=== PATIENT | female | born 1935 | race Hispanic/Latino ===

== ENCOUNTER 2017-06-23 17:02 | Inpatient (IN) | payer MEDICARE, OTHER ==
[2017-06-23 17:02] VITALS: BMI 17.1
[2017-06-23] MEDS ORDERED: Piperacillin/Tazobact 3.375 gm 100 ML IVPB STA (17:27)
[2017-06-23] MEDS ORDERED: Sodium Chloride 0.9% 1,000 ML IV ONE (17:27)
--- NOTE | 2017-06-23 17:34 | C.PDOC ---
History Of Present Illness Alex Wolf is an 82 year old female who was brought to the ER from rehab center for change in mental status. Of note, patient has DNI, DNR in place. Patient baselineis awake but confused, however on arrival here, pt somulent. Patient on arrival is noted to be febrile. Limited history provided. After discussion with family, requests DNI and DNR. Family also states patient has recurrent UTIs. Time Seen by Provider: 06/23/17 17:07 Chief Complaint (Nursing): Altered Mental Status History Per: Patient History/Exam Limitations: Clinical Condition (altered) Onset/Duration Of Symptoms: Days (x1) Current Symptoms Are (Timing): Still Present Additional History Per: Family Associated Symptoms: Fever Past Medical History Reviewed: Historical Data, Nursing Documentation, Vital Signs Vital Signs: Last Vital Signs Temp 96.5 F L 06/26/17 16:00 Pulse 60 06/26/17 16:00 Resp 20 06/26/17 16:00 BP 91/64 L 06/26/17 16:00 Pulse Ox 100 06/26/17 16:00 - Medical History PMH: Anxiety, Arthritis, Atrial Fibrillation, Cardia Arrhythmia (a fib), Dementia, Depression, HTN, Hypothyroidism, Pneumonia Denies: Asthma, Bipolar Disorder, Diabetes, Hepatitis, HIV, Personality Disorder, Post Traumatic Stress Disorder, Chronic Kidney Disease, Schizophrenia , Seizures, Sexually Transmitted Disease - [facility] Procedures INTRODUCTION OF ANTI-INFLAMMATORY INTO MUSCLE, PERC APPROACH (06/04/16) INTRODUCTION OF LOCAL ANESTHETIC INTO MUSCLE, PERC APPROACH (06/04/16) REMOV EXT IMMOBILIZATION (04/06/99) Family History: States: Unknown Family Hx - Social History Hx Alcohol Use: No Hx Substance Use: No - Immunization History Hx Tetanus Toxoid Vaccination: No Hx Influenza Vaccination: No Hx Pneumococcal Vaccination: No Review Of Systems Except As Marked, All Systems Reviewed And Found Negative. Constitutional: Positive for: Fever Neurological: Positive for: Altered Mental Status Physical Exam - Physical Exam Appears: Other (Contracted elderly female) Skin: Normal Color, Warm, Dry Head: Atraumatic, Normacephalic Eye(s): bilateral: Normal Inspection, PERRL, EOMI Nose: Normal Neck: Normal, Normal ROM, Supple Cardiovascular: Rhythm Regular, No Murmur Respiratory: No Rhonchi, No Wheezing, Other (Mildly coarse breath sounds bilaterally) Gastrointestinal/Abdominal: Normal Exam, Soft, No Tenderness Back: Normal Inspection, No Vertebral Tenderness Extremity: Normal ROM, No Deformity Neurological/Psych: Other (responsive to some painful stimuli) ED Course And Treatment - Laboratory Results Result Diagrams: 06/26/17 08:50 06/26/17 08:50 ECG: Interpreted By Me, Viewed By Me ECG Rhythm: Sinus Rhythm (at 68 bpm) O2 Sat by Pulse Oximetry: 99 (RA) Pulse Ox Interpretation: Normal Medical Decision Making Medical Decision Making: pt febrile on arrival. extensive discussion with family on arrival - no aggresive measures- will not ct head, given goals of care for family. Time: 17:26 Initial Impression: 82 y/o female with altered mental status, febrile Initial Plan: * EKG * Chest X-Ray * VBG * Blood culture * Urine culture * CMP * Lipase * Troponin I * CBC * PTT * Prothrombin time * Urinalysis * Influenza A B * Sodium chloride IV 1000 ml at 1000 mls/hr * Tylenol 650 mg NE * Vancomycin IVPB * Zosyn IVPB * Reevaluation 640: discussed with dr blanca, accepts for admission. Disposition - Disposition Disposition: HOSPITALIZED Disposition Time: 18:41 Condition: GUARDED - Clinical Impression Clinical Impression: UTI (urinary tract infection), Altered mental status - Scribe Statement The provider has reviewed the documentation as recorded by the Scribe (Alaina Chambers) All medical record entries made by the Scribe were at my direction and personally dictated by me. I have reviewed the chart and agree that the record accurately reflects my personal performance of the history, physical exam, medical decision making, and the department course for this patient. I have also personally directed, reviewed, and agree with the discharge instructions and disposition. Decision To Admit - Pt Status Changed To: Hospital Disposition Of: Inpatient - Admit Certification Admit to Inpatient:: After my assessment, the patient will require hospitalization for at least two midnights. This is because of the severity of symptoms shown, intensity of services needed, and/or the medical risk in this patient being treated as an outpatient. - InPatient: Physician Admission Certification:: pt needs iv antibiotics - . Bed Request Type: Telemetry Admitting Physician: Anthony Blanca Patient Diagnosis: UTI (urinary tract infection), Altered mental status
[2017-06-23 17:41] LABS: BASO # 0.1 K/uL (0.0-0.2); EOS # 0.7 K/uL (0.0-0.7); EOS % 8.4 % (0.0-4.0); LYMPH # 1.4 K/uL (1.0-4.3); LYMPH % 17.4 % (20.0-40.0); MEAN CELL VOLUME 89.7 fL (81.0-99.0); MEAN CORPUSCULAR HGB CONC 33.4 g/dL (33.0-37.0); MEAN PLATELET VOLUME 7.9 fL (7.2-11.7); MONO # 0.6 K/uL (0.0-0.8); MONO % 8.3 % (0.0-10.0); NEUT # 5.1 K/uL (1.8-7.0); NEUT % 64.9 % (50.0-75.0); RBC 3.01 Mil/uL (3.80-5.20); RED CELL DISTRIBUTION WIDTH 12.5 % (11.5-14.5); WHITE BLOOD COUNT 7.8 K/uL (4.8-10.8)
[2017-06-23 17:45] LABS: VENOUS BLOOD GAS BASE EXCESS 5.3 mmol/L (0.0-2.0); VENOUS BLOOD GAS PCO2 46 mmHg (40-60); VENOUS BLOOD GAS PO2 30 mm/Hg (30-55); VENOUS BLOOD PH 7.43 (7.32-7.43)
[2017-06-23 17:52] LABS: ALT/SGPT 134 U/L (9-52); AST/SGOT 47 U/L (14-36); BLOOD UREA NITROGEN 18 mg/dL (7-17); GFR AFRICAN-AMERICAN > 60; GFR NON-AFRICAN AMERICAN > 60; LIPASE 85 U/L (23-300)
[2017-06-23] MEDS ORDERED: Sodium Chloride 0.9% 1,000 ML ONE (17:52)
[2017-06-23 17:53] LABS: ALB/GLOB RATIO 1.2 (1.0-2.1)
[2017-06-23 18:01] LABS: PROTHROMBIN TIME 11.7 SECONDS (9.7-12.2)
--- NOTE | 2017-06-23 18:04 | RAD ---
HISTORY: chest pain COMPARISON: None available. TECHNIQUE: Chest, one view. FINDINGS: LUNGS: Interstitial prominence may reflect infection or edema. Bilateral hilar prominence, right greater than left. Biapical pleural thickening. Please note that chest x-ray has limited sensitivity for the detection of pulmonary masses. PLEURA: Trace probable bilateral pleural effusions. No definite pneumothorax . CARDIOVASCULAR: Cardiomegaly. OSSEOUS STRUCTURES: Osseous demineralization. Degenerative changes. VISUALIZED UPPER ABDOMEN: Unremarkable. OTHER FINDINGS: None. IMPRESSION: Interstitial prominence may reflect infection or edema. Biapical pleural thickening. Bilateral hilar prominence, right greater than left. Trace probable bilateral pleural effusions. Cardiomegaly.
[2017-06-23 18:26] LABS: SQUAMOUS EPITHIAL 2 /hpf (0-5); URINE AMORPHOUS SEDIMENT RARE /ul (<OCC); URINE BACTERIA OCC (<OCC); URINE BILIRUBIN NEGATIVE (NEGATIVE); URINE BLOOD 1+ (NEGATIVE); URINE CLARITY Hazy (Clear); URINE COLOR Yellow (YELLOW); URINE GLUCOSE (UA) NORMAL (Normal); URINE LEUKOCYTE ESTERASE 1+ Leu/uL (Negative); URINE NITRATE POSITIVE (NEGATIVE); URINE PROTEIN NEGATIVE (NEGATIVE); URINE UROBILINOGEN NORMAL mg/dL (0.2-1.0)
[2017-06-23] MEDS ORDERED: Piperacill/Tazo 3.375gm in Dex 3.375 GM/50 ML BAG IVPB ONE (19:00)
[2017-06-23] MEDS: Sodium Chloride 0.45% 1,000 ML IV SCH (19:06)
[2017-06-23] MEDS ORDERED: Sodium Chloride 0.45% 1,000 ML IV ONE (19:17)
[2017-06-23] MEDS ORDERED: Vancomycin 1 gm/NS 200 ml 1 GM/200 ML BAG IVPB ONE (20:00)
[2017-06-24] MEDS: Piperacill/Tazo 3.375gm in Dex 3.375 GM/50 ML BAG IVPB SCH ×3 (02:25→18:35)
[2017-06-24] MEDS ORDERED: Pantoprazole 40 mg EC Tab PO SCH (06:00)
[2017-06-24 07:09] LABS: HEMOGLOBIN 9.6 g/dL (11.0-16.0); MEAN CELL VOLUME 89.5 fL (81.0-99.0); MEAN CORPUSCULAR HEMOGLOBIN 30.5 pg (27.0-31.0); MEAN CORPUSCULAR HGB CONC 34.1 g/dL (33.0-37.0); MEAN PLATELET VOLUME 7.6 fL (7.2-11.7); RBC 3.16 Mil/uL (3.80-5.20); RED CELL DISTRIBUTION WIDTH 12.2 % (11.5-14.5); WHITE BLOOD COUNT 8.5 K/uL (4.8-10.8)
[2017-06-24 07:26] LABS: ALBUMIN 2.9 g/dL (3.5-5.0); ALT/SGPT 112 U/L (9-52); AST/SGOT 42 U/L (14-36); BLOOD UREA NITROGEN 16 mg/dL (7-17); CALCIUM 8.3 mg/dl (8.6-10.4); GFR AFRICAN-AMERICAN > 60; GFR NON-AFRICAN AMERICAN > 60
[2017-06-24] MEDS ORDERED: Levothyroxine 125 MCG TAB PO SCH (07:30)
[2017-06-24 07:40] LABS: ALB/GLOB RATIO 1.1 (1.0-2.1)
[2017-06-24] MEDS ORDERED: Piperacillin/Tazobact 3.375 gm 100 ML IVPB ONE (09:27)
--- NOTE | 2017-06-24 10:26 | CT ---
PROCEDURE: CT HEAD WITHOUT CONTRAST. HISTORY: Altered mental status COMPARISON: No prior. TECHNIQUE: Axial computed tomography images were obtained through the head/brain without intravenous contrast. Radiation dose: Total exam DLP = 503.71 mGy-cm. This CT exam was performed using one or more of the following dose reduction techniques: Automated exposure control, adjustment of the mA and/or kV according to patient size, and/or use of iterative reconstruction technique. FINDINGS: HEMORRHAGE: No acute parenchymal, subarachnoid or extra-axial hemorrhage. BRAIN: Acute infarct changes involving the left BLEACH CHLORINATOR vascular territory that include the left cerebellum, left occipito parietal watershed zone at left posteromedial basal ganglia and brainstem. . Additionally, mild diffuse/ confluent chronic white matter ischemic changes are present. There are a few scattered chronic bilateral basal nuclei lacunar type infarcts as well. Moderate generalized volume loss. VENTRICLES: No obstructive hydrocephalus. CALVARIUM: There are no acute calvarial fractures are identified on this study. PARANASAL SINUSES: Minor mucoperiosteal inflammatory changes seen within the ethmoid air complex extending superiorly into the frontal sinus. MASTOID AIR CELLS: Unremarkable as visualized. No inflammatory changes. OTHER FINDINGS: None. IMPRESSION: There are acute infarct changes involving the in the left posterior cerebral artery vascular distribution including the cerebellum, brainstem, left occipito parietal watershed zone and left posteromedial basal ganglia. . Few scattered chronic bilateral basal nuclei lacunar type infarcts. No evidence of acute intracranial hemorrhage. Moderate generalized volume loss. Note these findings were discussed with Dr. Blanca 10:20 a.m. with written down and read back verification.
[2017-06-24 10:45] LABS: HEMOGLOBIN 9.3 g/dL (11.0-16.0); MEAN CELL VOLUME 89.9 fL (81.0-99.0); MEAN CORPUSCULAR HEMOGLOBIN 30.2 pg (27.0-31.0); MEAN CORPUSCULAR HGB CONC 33.6 g/dL (33.0-37.0); MEAN PLATELET VOLUME 7.8 fL (7.2-11.7); RBC 3.07 Mil/uL (3.80-5.20); RED CELL DISTRIBUTION WIDTH 12.3 % (11.5-14.5); WHITE BLOOD COUNT 9.1 K/uL (4.8-10.8)
[2017-06-24 11:07] LABS: ALBUMIN 2.9 g/dL (3.5-5.0); ALT/SGPT 108 U/L (9-52); AST/SGOT 48 U/L (14-36); BLOOD UREA NITROGEN 16 mg/dL (7-17); CALCIUM 8.3 mg/dl (8.6-10.4); GFR AFRICAN-AMERICAN > 60; GFR NON-AFRICAN AMERICAN > 60
--- NOTE | 2017-06-24 12:02 | HP ---
HISTORY OF PRESENT ILLNESS: I saw her in the ER at [facility]. She is from the correction. She was a Dr. Faulkner's patient. Now, I am covering Dr. Faulkner. She is in the ER, not alert, not aware, breathing. Apparently, she is a DNR/DNI from the correction, but I think family might change their mind on that. She has not awoken for me. She has altered mental status from the correction, which she came from. She was alert and talking at one time. There was some fevers. She comes in with a 101.4 temp, 86 pulse, 20 respiratory rate, 102/46 blood pressure, 99% O2 sat. I cannot do a review of systems. She is not alert. She has a past medical history of anxiety, arthritis, AFib, cardiac arrhythmia, dementia, depression, hypertension, hypothyroid, pneumonia history. She had removal of embolization in 1998. Apparently, she does not smoke or drink or do drugs. We cannot do a review of systems. She has altered mental status, not awake or alert. PHYSICAL EXAMINATION: VITAL SIGNS: She has a temperature of 101.4. GENERAL: She is sleeping apparently in bed, not awaking, not arousable. SKIN: Warm and dry. No apparent rashes. HEENT: Head is atraumatic, normocephalic. HEART: Regular rate. LUNGS: Decreased breath sounds, fairly clear. ABDOMEN: Soft. No apparent tenderness. No guarding. No rebound. Positive bowel sounds. EXTREMITIES: No edema. She does not move anything. She is out of it. LABORATORY DATA: She comes in with labs and lots of tests. She has a 137 sodium, a 3.5 potassium, I replaced the potassium, BUN is 16, creatinine 0.7, GFR is greater than 60, sugar is 90, calcium is 8.3, total bili is 0.7. AST is 42, ALT is 112, alk phos is 261, troponin is less than 0.012, total protein 5.7. The thyroid test was less than 0.02. She is on Synthroid. I will stop the Synthroid. She has a white count of 8.5, hemoglobin 9.6, hematocrit 28.2, platelets of 241. They did a chest x-ray, interstitial problems, reflect infection or edema. IMPRESSION: She has been consulted with Neurology and Infectious Disease. I have her on IV fluids, Zosyn antibiotic. We will hold the Protonix. I will change that to IV. I am stopping the Synthroid. She did not get any because she cannot swallow. Now that we know that the TSH is so low, I will stop the Synthroid. She got one dose of vancomycin in the ER. We are checking her labs. We will see what Neurology and Infectious Disease has to offer. We will continue aggressive treatment and care on Alex Wolf who has got change in mentation. We will also order a CAT scan of the brain. Anthony Blanca DO
--- NOTE | 2017-06-24 14:14 | MRI ---
PROCEDURE: MRI BRAIN WITHOUT CONTRAST HISTORY: CVA COMPARISON: Noncontrast head CT performed earlier the same day. TECHNIQUE: Multiplanar, multisequence MR images of the brain were obtained without intravenous contrast enhancement. FINDINGS: HEMORRHAGE: None DWI: There are acute infarctions in the left cerebellum, left occipital lobe, right posterior inferior occipital lobe, posterior gualberto, midbrain, bilateral medial temporal lobes, larger on the left, left thalamus, right medial thalamus and periaqueductal kirby matter. BRAIN PARENCHYMA: There is subtle increased T2/FLAIR hyperintensity corresponding to the areas of restricted diffusion. There are moderate chronic microangiopathic changes. There is no mass, mass effect or abnormal extra-axial fluid collection. The midline sagittal structures are normal. VENTRICLES: There is mild age-related global parenchymal volume loss and proportionate enlargement of the ventricles and cortical sulci. CRANIUM: There is normal bone marrow signal pattern. ORBITS: Grossly unremarkable. PARANASAL SINUSES/MASTOIDS: Mild mucosal thickening in the paranasal sinuses. Trace right mastoid effusion. VASCULAR SYSTEM: Skull base flow voids intact. OTHER FINDINGS: None. IMPRESSION: 1. 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 2. Moderate chronic microangiopathic changes and mild age-related global parenchymal volume loss. Critical findings were discussed with nurse Shan Steiner on 06/24/2017 at 2:12 p.m.
--- NOTE | 2017-06-24 15:37 | VASCLAB ---
PROCEDURE: HISTORY: stroke COMPARISON: None available. TECHNIQUE: Grayscale and duplex Doppler evaluation of the cervical carotid and vertebral arteries were performed. The common carotid, carotid bifurcations and cervical Internal Carotid Artery (ICA) and proximal External Carotid Artery (ECA) were evaluated. The vertebral arteries were evaluated for gross patency and flow direction. Report prepared by Gregory Lewis, BS, RVT FINDINGS: RIGHT CAROTID ARTERIES: 1. Common Carotid Artery: No significant focal plaque formation of the right common carotid artery. Maximum Peak Systolic velocity: 82 cm/sec: End-diastolic velocity 22 cm/sec. 2. Carotid Bifurcation: plaque formation. Maximum Peak Systolic velocity: 78 cm/sec: End-diastolic velocity 26 cm/sec. 3. Internal Carotid Artery: Plaque description: 3.1. Proximal Segment: Peak systolic velocity 76 cm/sec: End-diastolic velocity 16 cm/sec - % stenosis 0-15% 3.2. Middle Segment: Peak systolic velocity 95 cm/sec: End-diastolic velocity 27 cm/sec - % stenosis 0-15% 3.3. Distal Segment: Peak systolic velocity 89 cm/sec: End-diastolic velocity 32 cm/sec - % stenosis 0-15% 4. External Carotid Artery: No significant focal plaque formation. Peak systolic velocity 102 cm/sec 5. ICA/CCA Ratio: 1.2 LEFT CAROTID ARTERIES: 1. Common Carotid Artery: No significant focal plaque formation of the left common carotid artery. Maximum Peak Systolic velocity: 68 cm/sec: End-diastolic velocity 19 cm/sec. 2. Carotid Bifurcation: plaque formation. Maximum Peak Systolic velocity: 58 cm/sec: End-diastolic velocity 17 cm/sec. 3. Internal Carotid Artery: Plaque description: 3.1. Proximal Segment: Peak systolic velocity 84 cm/sec: End-diastolic velocity 26 cm/sec - % stenosis 0-15% 3.2. Middle Segment: Peak systolic velocity 112 cm/sec: End-diastolic velocity 31 cm/sec - % stenosis 0-15% 3.3. Distal Segment: Peak systolic velocity 131 cm/sec: End-diastolic velocity 32 cm/sec - % stenosis 0-15% 4. External Carotid Artery: No significant focal plaque formation. Peak systolic velocity 86 cm/sec 5. ICA/CCA Ratio: 1.9 VERTEBRAL ARTERIES: 1. Right Vertebral Artery: The right vertebral artery flow direction is antegrade. 2. Left Vertebral Artery: Unable to visualize the left vertebral artery flow. OTHER FINDINGS: 1. Right Brachial Blood pressure: mmHg. 2. Left Brachial Blood pressure: mmHg. IMPRESSION: RIGHT: Duplex scan does not suggest hemodynamically significant stenosis of the right extracranial carotid arteries. LEFT: Duplex scan does not suggest hemodynamically significant stenosis of the left extracranial carotid arteries. Nonvisualization of flow within the left vertebral artery. Findings conveyed to Dr. Blanca by Dr. Bolton at 3:34 p.m. on 06/24/2017.
[2017-06-24 16:45] LABS: HDL CHOLESTEROL 33 mg/dL (30-70)
[2017-06-24 16:56] LABS: LDL CHOLESTEROL 120 mg/dL (0-129)
[2017-06-24] MEDS ORDERED: Thiamine 100 mg/ml Inj ONE (17:06)
[2017-06-24] MEDS: Thiamine 100 mg/ml Inj IV SCH ×2 (17:12→23:21)
--- NOTE | 2017-06-24 17:17 | CP.PCM.CON ---
History of Present Illness - History of Present Illness History of Present Illness: 82 year old female who was brought to the ER from rehab center for change in mental status. . Patient baselinei s awake but confused, however on arrival here, pt somulent. Patient on arrival is noted to be febrile. L. Family also states patient has recurrent UTIs. ID consulted for anytibiotic management - Medical History PMH: Anxiety, Arthritis, Atrial Fibrillation, Cardia Arrhythmia (a fib), Dementia, Depression, HTN, Hypothyroidism, Pneumonia Denies: Asthma, Bipolar Disorder, Diabetes, Hepatitis, HIV, Personality Disorder, Post Traumatic Stress Disorder, Chronic Kidney Disease, Schizophrenia , Seizures, Sexually Transmitted Disease Review of Systems - Review of Systems Systems not reviewed;Unavailable: Altered Mental Status All systems: reviewed and no additional remarkable complaints except - Constitutional Constitutional: As Per HPI - EENT Eyes: absent: As Per HPI, Blind Spots, Blurred Vision, Change in Vision, Decreased Night Vision, Diplopia, Discharge, Dry Eye, Exophthalmos, Floaters, Irritation, Itchy Eyes, Loss of Peripheral Vision, Pain, Photophobia, Requires Corrective Lenses, Sees Flashes, Spots in Vision, Tunnel Vision, Other Visual Disturbances, Loss of Vision, Other Ears: absent: As Per HPI, Decreased Hearing, Ear Discharge, Ear Pain, Tinnitus, Abnormal Hearing, Disequilibrium, Dizziness, Other Nose/Mouth/Throat: absent: As Per HPI, Epistaxis, Nasal Congestion, Nasal Discharge, Nasal Obstruction, Nasal Trauma, Nose Pain, Post Nasal Drip, Sinus Pain, Sinus Pressure, Bleeding Gums, Change in Voice, Dental Pain, Dry Mouth, Dysphagia, Halitosis, Hoarsness, Lip Swelling, Mouth Lesions, Mouth Pain, Odynophagia, Sore Throat, Throat Swelling, Tongue Swelling, Facial Pain, Neck Pain, Neck Mass, Other - Breasts Breasts: absent: As Per HPI, Change in Shape, Mass, Pain, Nipple Discharge, Nipple Inversion, Skin Changes, Swelling, Other - Cardiovascular Cardiovascular: absent: As Per HPI, Acrocyanosis, Chest Pain, Chest Pain at Rest , Chest Pain with Activity, Claudication, Diaphoresis, Dyspnea, Dyspnea on Exertion, Edema, Irregular Heart Rhythm, Pain Radiating to Arm/Neck/Jaw, Leg Edema, Leg Ulcers, Lightheadedness, Orthopnea, Palpitations, Paroxysmal Nocturnal Dyspnea, Pedal Edema, Radiating Pain, Rapid Heart Rate, Slow Heart Rate, Syncope, Other - Respiratory Respiratory: absent: As Per HPI, Cough, Dyspnea, Hemoptysis, Dyspnea on Exertion , Wheezing, Snoring, Stridor, Pain on Inspiration, Chest Congestion, Excessive Mucous Production, Change in Mucous Color, Pain with Coughing, Other - Gastrointestinal Gastrointestinal: absent: As Per HPI, Abdominal Pain, Belching, Bloating, Change in Bowel Habits, Change in Stool Character, Coffee Ground Emesis, Constipation, Cramping, Diarrhea, Dyspepsia, Dysphagia, Early Satiety, Excessive Flatus, Fecal Incontinence, Heartburn, Hematemesis, Hematochezia, Loose Stools, Melena, Nausea, Odynophagia, Temesmus, Vomiting, Other - Genitourinary Genitourinary: absent: As Per HPI, Change in Urinary Stream, Difficulty Urinating, Dysuria, Flank Pain, Hematuria, Pyuria, Nocturia, Urinary Incontinence, Urinary Frequency, Urinary Hesitance, Urinary Urgency, Voiding Freq/Small Amts, Freq UTI, Hx Renal/Bladder Calculi, Hx /Renal Surgery, Bladder Distension, Other - Reproductive: Female Reproductive:Female: absent: As Per HPI, Amenorrhea, Amenorrhea/ Control, Currently Menstual, Cycle <21 Days, Cycle >35 Days, Cycle Variable, Menses 1-7 Days, Menses >/= 8 Days, Menses Variable, Cycle > 4 Weeks Between, No Menses for 6 Months, Heavy Menses, Light Menses, Normal Menses, Spotting Between Cycles , S/P Hysterectomy, Menopausal, Post Menopausal, Premenarche, Abnormal Vaginal Bleeding, Dysmenorrhea, Dyspareunia, Genital Lesions, Genital Pruritis, Pelvic Pain, Prolapse Symptoms, Sexual Dysfunction, Vaginal Discharge, Vaginal Dryness , Vaginal Odor, Vaginal Pruritis, Other - Menstruation Menstruation: absent: As Per HPI, Amenorrhea, Amenorrhea/ Control, Currently Menstual, Cycle <21 Days, Cycle >35 Days, Cycle Variable, Menses 1-7 Days, Menses >/= 8 Days, Menses Variable, Cycle > 4 Weeks Between, No Menses for 6 Months, Heavy Menses, Light Menses, Normal Menses, Spotting Between Cycles , S/P Hysterectomy, Menopausal, Post Menopausal, Premenarche, Abnormal Vaginal Bleeding, Dysmenorrhea, Other - Musculoskeletal Musculoskeletal: absent: As Per HPI, Abnormal Gait, Arthralgias, Atrophy, Back Pain, Deformity, Joint Swelling, Limited Range of Motion, Loss of Height, Muscle Cramps, Muscle Weakness, Myalgias, Neck Pain, Numbness, Radiating Pain into Limb, Stiffness, Tingling, Other - Integumentary Integumentary: absent: As Per HPI, Acne, Alopecia, Bleeding Lesions, Change in Hair, Change in Nails, Change in Pigmentation, Changing Lesions, Dry Skin, Erythema, Furuncle, Hirsutism, Lesions, New Lesions, Non-Healing Lesions, Photosensitivity, Pruritus, Rash, Skin Pain, Skin Ulcer, Sores, Striae, Swelling , Unusual Bruising, Wounds, Jaundice, Other - Neurological Neurological: As Per HPI - Psychiatric Psychiatric: absent: As Per HPI, Abnormal Sleep Pattern, Anhedonia, Anxiety, Auditory Hallucinations, Behavioral Changes, Change in Appetite, Change in Libido, Confusion, Depression, Difficulty Concentrating, Hallucinations, Homicidal Ideation, Hopelessness, Irritability, Memory Loss, Mood Swings, Panic Attacks, Paranoia, Suicidal Ideation, Visual Hallucinations, Tactile Hallucinations, Other - Endocrine Endocrine: absent: As Per HPI, Change in Body Appearance, Change in Libido, Cold Intolorance, Deepening of Voice, Excessive Sweating, Fatigue, Flushing, Heat Intolorance, Increase in Ring/Shoe/Hat Size, Palpitations, Polydipsia, Polyphagia, Polyuria, Other - Hematologic/Lymphatic Hematologic: absent: As Per HPI, Easy Bleeding, Easy Bruising, Lymphadenopathy, Other Past Patient History - Infectious Disease Hx of Infectious Diseases: None - Past Social History Smoking Status: Never Smoked - CARDIAC Hx Atrial Fibrillation: Yes Hx Cardia Arrhythmia: Yes (a fib) Hx Hypertension: Yes - PULMONARY Hx Asthma: No Hx Pneumonia: Yes - NEUROLOGICAL Hx Dementia: Yes Hx Seizures: No - HEENT Hx HEENT Problems: Yes (eyeglasses) - RENAL Hx Chronic Kidney Disease: No - ENDOCRINE/METABOLIC Hx Hypothyroidism: Yes - HEMATOLOGICAL/ONCOLOGICAL Hx Human Immunodeficiency Virus (HIV): No - INTEGUMENTARY Hx Dermatological Problems: No - MUSCULOSKELETAL/RHEUMATOLOGICAL Hx Arthritis: Yes - GASTROINTESTINAL Hx Gastrointestinal Disorders: No - GENITOURINARY/GYNECOLOGICAL Hx Sexually Transmitted Disorders: No - PSYCHIATRIC Hx Anxiety: Yes Hx Bipolar Disorder: No Hx Depression: Yes Hx Post Traumatic Stress Disorder: No Hx Schizophrenia: No Hx Substance Use: No - SURGICAL HISTORY Hx Orthopedic Surgery: Yes (left wrist hardware in and out) Other/Comment: ORTHO SURGERY FROM PREVISOU TRIAGE - ANESTHESIA Hx Anesthesia: Yes Hx Anesthesia Reactions: No Hx Malignant Hyperthermia: No Meds Allergies/Adverse Reactions: Allergies Allergy/AdvReac Type Severity Reaction Status Date / Time No Known Allergies Allergy Verified 06/23/17 17:13 - Medications Medications: Current Medications Docusate Sodium (Colace) 100 mg PO BID [facility] Last Admin: 06/24/17 09:33 Dose: Not Given Heparin Sodium (Porcine) (Heparin) 5,000 units SC Q12 [facility] Last Admin: 06/24/17 10:42 Dose: 5,000 units Sodium Chloride (Sodium Chloride 0.45%) 1,000 mls @ 30 mls/hr IV .Q24H [facility] Last Admin: 06/23/17 19:06 Dose: 30 mls/hr Piperacillin Sod/Tazobactam Sod (Zosyn 3.375 Gm Iv Premix) 3.375 gm in 50 mls @ 100 mls/hr IVPB Q8H [facility] Last Admin: 06/24/17 10:30 Dose: 100 mls/hr Pantoprazole Sodium (Protonix Inj) 40 mg IVP DAILY [facility] Last Admin: 06/24/17 10:30 Dose: 40 mg Thiamine HCl (Vitamin B1 Inj) 100 mg IV Q8 [facility] Last Admin: 06/24/17 17:12 Dose: 100 mg Physical Exam - Constitutional Appears: Confused, Cachectic, Chronically Ill - Head Exam Head Exam: NORMOCEPHALIC - Eye Exam Eye Exam: PERRL. absent: Scleral icterus - ENT Exam ENT Exam: Mucous Membranes Dry - Neck Exam Neck exam: Negative for: Lymphadenopathy - Respiratory Exam Respiratory Exam: Decreased Breath Sounds - Cardiovascular Exam Cardiovascular Exam: REGULAR RHYTHM, +S1, +S2 - GI/Abdominal Exam GI & Abdominal Exam: Diminished Bowel Sounds, Soft. absent: Tenderness - Rectal Exam Rectal Exam: Deferred - Exam Exam: NORMAL INSPECTION - Extremities Exam Extremities exam: Positive for: pedal pulses present. Negative for: calf tenderness, pedal edema, tenderness - Back Exam Back exam: absent: CVA tenderness (L), CVA tenderness (R) - Neurological Exam Neurological exam: Altered - Psychiatric Exam Psychiatric exam: Depressed - Skin Skin Exam: Dry Results - Vital Signs Recent Vital Signs: Last Vital Signs Temp 99.7 F H 06/24/17 01:08 Pulse 62 06/24/17 09:51 Resp 22 06/24/17 09:51 BP 98/49 L 06/24/17 09:51 Pulse Ox 100 06/24/17 09:51 - Labs Result Diagrams: 06/24/17 10:31 06/24/17 10:31 Labs: Laboratory Results - last 24 hr 06/23/17 06/23/17 06/23/17 17:23 17:38 17:38 WBC 7.8 RBC 3.01 L Hgb 9.0 L Hct 27.0 L MCV 89.7 MCH 30.0 MCHC 33.4 RDW 12.5 Plt Count 236 MPV 7.9 Neut % (Auto) 64.9 Lymph % (Auto) 17.4 L [place] % (Auto) 8.3 Eos % (Auto) 8.4 H Baso % (Auto) 1.0 Neut # 5.1 Lymph # 1.4 [place]ford # 0.6 Eos # 0.7 Baso # 0.1 PT 11.7 INR 1.0 APTT 28 pO2 VBG pH VBG pCO2 VBG HCO3 VBG Total CO2 VBG O2 Sat (Calc) VBG Base Excess VBG Potassium Glucose Lactate Sodium Potassium Chloride Carbon Dioxide Anion Gap BUN Creatinine Est GFR ( Amer) Est GFR (Non-Af Amer) POC Glucose (mg/dL) 85 Random Glucose Calcium Total Bilirubin AST ALT Alkaline Phosphatase Troponin I Total Protein Albumin Globulin Albumin/Globulin Ratio Triglycerides Cholesterol LDL Cholesterol Direct HDL Cholesterol Lipase TSH 3rd Generation Venous Blood Potassium Urine Color Urine Clarity Urine pH Ur Specific Lawrence Urine Protein Urine Glucose (UA) Urine Ketones Urine Blood Urine Nitrate Urine Bilirubin Urine Urobilinogen Ur Leukocyte Esterase Urine WBC (Auto) Urine RBC (Auto) Ur Squamous Epith Cells Amorphous Sediment Urine Bacteria Influenza Typ A,B (EIA) 06/23/17 06/23/17 06/23/17 17:38 17:39 17:41 WBC RBC Hgb Hct MCV MCH MCHC RDW Plt Count MPV Neut % (Auto) Lymph % (Auto) [place] % (Auto) Eos % (Auto) Baso % (Auto) Neut # Lymph # [place] # Eos # Baso # PT INR APTT pO2 30 VBG pH 7.43 VBG pCO2 46 VBG HCO3 28.0 VBG Total CO2 31.9 H VBG O2 Sat (Calc) 62.6 VBG Base Excess 5.3 H VBG Potassium 3.4 L Glucose 89 Lactate 0.9 Sodium 138 143.0 Potassium 3.6 Chloride 104 113.0 H Carbon Dioxide 29 Anion Gap 8 L BUN 18 H Creatinine 0.7 Est GFR ( Amer) > 60 Est GFR (Non-Af Amer) > 60 POC Glucose (mg/dL) Random Glucose 90 Calcium 8.0 L Total Bilirubin 0.4 AST 47 H ALT 134 H Alkaline Phosphatase 283 H D Troponin I < 0.0120 Total Protein 5.4 L Albumin 3.0 L Globulin 2.4 Albumin/Globulin Ratio 1.2 Triglycerides Cholesterol LDL Cholesterol Direct HDL Cholesterol Lipase 85 TSH 3rd Generation Venous Blood Potassium 3.4 L Urine Color Urine Clarity Urine pH Ur Specific Lawrence Urine Protein Urine Glucose (UA) Urine Ketones Urine Blood Urine Nitrate Urine Bilirubin Urine Urobilinogen Ur Leukocyte Esterase Urine WBC (Auto) Urine RBC (Auto) Ur Squamous Epith Cells Amorphous Sediment Urine Bacteria Influenza Typ A,B (EIA) Negative for flu a/b 06/23/17 06/24/17 06/24/17 18:05 07:01 07:01 WBC 8.5 RBC 3.16 L Hgb 9.6 L Hct 28.2 L MCV 89.5 MCH 30.5 MCHC 34.1 RDW 12.2 Plt Count 241 MPV 7.6 Neut % (Auto) Lymph % (Auto) [place] % (Auto) Eos % (Auto) Baso % (Auto) Neut # Lymph # [place] # Eos # Baso # PT INR APTT pO2 VBG pH VBG pCO2 VBG HCO3 VBG Total CO2 VBG O2 Sat (Calc) VBG Base Excess VBG Potassium Glucose Lactate Sodium 137 Potassium 3.5 L Chloride 104 Carbon Dioxide 28 Anion Gap 9 L BUN 16 Creatinine 0.7 Est GFR ( Amer) > 60 Est GFR (Non-Af Amer) > 60 POC Glucose (mg/dL) Random Glucose 90 Calcium 8.3 L Total Bilirubin 0.7 AST 42 H ALT 112 H Alkaline Phosphatase 261 H Troponin I Total Protein 5.7 L Albumin 2.9 L Globulin 2.8 Albumin/Globulin Ratio 1.1 Triglycerides Cholesterol LDL Cholesterol Direct HDL Cholesterol Lipase TSH 3rd Generation < 0.02 L Venous Blood Potassium Urine Color Yellow Urine Clarity Hazy Urine pH 9.0 Ur Specific Lawrence 1.014 Urine Protein Negative Urine Glucose (UA) Normal Urine Ketones Negative Urine Blood 1+ H Urine Nitrate Positive H Urine Bilirubin Negative Urine Urobilinogen Normal Ur Leukocyte Esterase 1+ H Urine WBC (Auto) 8 H Urine RBC (Auto) 9 H Ur Squamous Epith Cells 2 Amorphous Sediment Rare H Urine Bacteria Occ H Influenza Typ A,B (EIA) 06/24/17 06/24/17 06/24/17 10:31 10:31 16:36 WBC 9.1 RBC 3.07 L Hgb 9.3 L Hct 27.6 L MCV 89.9 MCH 30.2 MCHC 33.6 RDW 12.3 Plt Count 227 MPV 7.8 Neut % (Auto) Lymph % (Auto) [place] % (Auto) Eos % (Auto) Baso % (Auto) Neut # Lymph # [place] # Eos # Baso # PT INR APTT pO2 VBG pH VBG pCO2 VBG HCO3 VBG Total CO2 VBG O2 Sat (Calc) VBG Base Excess VBG Potassium Glucose Lactate Sodium 135 Potassium 3.1 L Chloride 104 Carbon Dioxide 29 Anion Gap 6 L BUN 16 Creatinine 0.6 L Est GFR ( Amer) > 60 Est GFR (Non-Af Amer) > 60 POC Glucose (mg/dL) Random Glucose 87 Calcium 8.3 L Total Bilirubin 0.6 AST 48 H ALT 108 H Alkaline Phosphatase 254 H Troponin I Total Protein 5.6 L Albumin 2.9 L Globulin 2.8 Albumin/Globulin Ratio 1.0 Triglycerides 69 Cholesterol 176 LDL Cholesterol Direct 120 HDL Cholesterol 33 Lipase TSH 3rd Generation Venous Blood Potassium Urine Color Urine Clarity Urine pH Ur Specific Lawrence Urine Protein Urine Glucose (UA) Urine Ketones Urine Blood Urine Nitrate Urine Bilirubin Urine Urobilinogen Ur Leukocyte Esterase Urine WBC (Auto) Urine RBC (Auto) Ur Squamous Epith Cells Amorphous Sediment Urine Bacteria Influenza Typ A,B (EIA) Assessment & Plan (1) Altered mental status Status: Acute (2) Urinary tract infection Status: Acute (3) Atrial fibrillation Status: Acute - Assessment and Plan (Free Text) Assessment: check cultures neuro eval CT head IV antibiotics DNR/DNI
--- NOTE | 2017-06-24 21:13 | CON ---
DATE: 06/24/2017 NEUROLOGY CONSULTATION CHIEF COMPLAINT: Altered mental status. HISTORY OF PRESENT ILLNESS: She was an 82-year-old woman with history of atrial fibrillation, cardiac arrhythmia, dementia, depression, hypertension, hypothyroidism, pneumonia, who presents from the [facility] as altered mental status. She was not aware or alert; therefore, came for further evaluation. She had low systolic and diastolic blood pressures currently, which showed blood pressures currently at 98/49. 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 There is mostly right-sided weakness, worse on the left, and altered. Carotid Doppler reviewed, no significant hemodynamic stenosis in the carotid arteries. Patient is now on aspirin and Plavix for stroke prevention and is on Zosyn for underlying urinary tract infection. PAST MEDICAL HISTORY: History of AFib, arthritis, anxiety, depression, hypothyroidism, hypertension. REVIEW OF SYSTEMS: A 14-point review of system is negative except per HPI. FAMILY HISTORY: Noncontributory. SOCIAL HISTORY: No illicit drug use, smoking, or EtOH abuse. ALLERGIES: NO KNOWN DRUG ALLERGIES. MEDICATIONS: Reviewed via nurse reconciliation sheet. PHYSICAL EXAMINATION: VITAL SIGNS: Temperature afebrile, pulse rate 62, blood pressure 98/49, respiratory rate 22, oxygen saturation 100% on room air. GENERAL: Patient is drowsy, in no acute distress. HEENT: Atraumatic and normocephalic. PERRLA. Extraocular muscles are intact. NECK: Supple. No JVD. No adenopathy noted. LUNGS: Clear to auscultation. No adventitious sounds. HEART: S1 and S2, normal rate and rhythm. No murmurs, rubs, or gallops. ABDOMEN: Soft, nontender, and nondistended. Bowel sounds are present. EXTREMITIES: No clubbing. No cyanosis. Peripheral pulses are 2+ felt bilaterally. NEUROLOGIC: Patient is drowsy, not communicating, in deep sleep. Speech is difficult to assess at this time. Cranial nerves, most with a right facial droop. Motor exam: Generalized weakness, but mostly on the right side is more than the left. Withdrawal is minimal to noxious stimulus. DTRs are 1+ throughout. LABORATORY DATA: Sodium 135, potassium 3.1, chloride 104, carbon dioxide 29, BUN of 16, creatinine 0.6, random glucose of 87. ASSESSMENT: This is an 82-year-old woman with past medical history of atrial fibrillation, not on any anticoagulation, with anxiety, arthritis, depression, hypertension, history of pneumonia, who presented from [facility] for altered mental status, not arousable, was called to evaluate. 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 At this time, her infarctions are likely secondary to watershed distribution from drop in her systolic and diastolic blood pressures. PLAN: 1. Aspirin 81, Plavix 75 mg, Lipitor 80 mg p.o. daily for stroke prevention. 2. Get a Cardiology consult, given that bilateral thalamic strokes possibly need to evaluate for any abnormal rhythm. She has a history of atrial fibrillation, but her risk in terms of HAS-BLED score is high in terms of putting her on any anticoagulation. Therefore, recommended to hold, but we will get cardiology input. 3. Continue her antibiotics per ID for underlying urinary tract infection. 4. Physical Therapy, Occupational Therapy evaluation as well as Speech. 5. Thiamine 100 mg IV q.8 to activate the reticular activating system. 6. She will likely need acute rehab. Once again avoid systolic drops in blood pressure. Keep the systolic blood pressure above 120 to 140s and diastolics 70 to 80s. Once again, thank you for this consult. Tom Hoyos MD
--- NOTE | 2017-06-24 22:37 | CON ---
DATE: HISTORY OF PRESENT ILLNESS: This is an 82-year-old white female who came from a shelter and patient had altered mental status. Patient is not following any commands and limited history. Her chief complaint was altered mental status. PAST MEDICAL HISTORY: Atrial fibrillation, dementia, depression, hypertension, hypothyroidism, pneumonia and arthritis. REVIEW OF SYSTEMS: A 10-point review of systems, patient is unresponsive and not following any commands. PHYSICAL EXAMINATION VITAL SIGNS: Blood pressure 102/46. NEUROLOGIC: Patient is not responding to verbal commands and bilateral iridectomy. No facial asymmetry. Limited spontaneous movement of the extremities noted. Deep tendon reflexes are 1+. Both plantars are downgoing. Sensory appears intact. Cerebellar, gait deferred. LABORATORY DATA: WBC 7.8, hemoglobin 9, hematocrit 27, platelet 236. Sodium 138, potassium 3.6, chloride 104, CO2 of 29, glucose 90, BUN 18, creatinine 0.7. IMPRESSION AND PLAN: 1. Encephalopathy superimposed on dementia. 2. 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 Continue present management and patient also has urinary tract infection and we will follow up. Jeremiah Hoyos MD
--- NOTE | 2017-06-24 23:30 | CARD ---
APPROVED REPORT EKG Measurement Heart [id number] <Conclusion> Sinus rhythm with APBs Left axis deviation Pulmonary disease pattern Inferior infarct, age undetermined Abnormal ECG
[2017-06-25] MEDS: Piperacill/Tazo 3.375gm in Dex 3.375 GM/50 ML BAG IVPB SCH ×3 (03:30→17:36)
[2017-06-25] MEDS: Sodium Chloride 0.45% 1,000 ML IV SCH (03:30)
[2017-06-25] MEDS: Thiamine 100 mg/ml Inj IV SCH ×3 (05:49→22:21)
[2017-06-25 11:39] LABS: HEMOGLOBIN 9.9 g/dL (11.0-16.0); MEAN CELL VOLUME 88.7 fL (81.0-99.0); MEAN CORPUSCULAR HEMOGLOBIN 30.6 pg (27.0-31.0); MEAN CORPUSCULAR HGB CONC 34.5 g/dL (33.0-37.0); RBC 3.25 Mil/uL (3.80-5.20); RED CELL DISTRIBUTION WIDTH 12.4 % (11.5-14.5); WHITE BLOOD COUNT 10.2 K/uL (4.8-10.8)
[2017-06-25 12:07] LABS: ALBUMIN 2.8 g/dL (3.5-5.0); ALT/SGPT 77 U/L (9-52); AST/SGOT 44 U/L (14-36); BLOOD UREA NITROGEN 21 mg/dL (7-17); CALCIUM 8.3 mg/dl (8.6-10.4); GFR AFRICAN-AMERICAN > 60; GFR NON-AFRICAN AMERICAN > 60
[2017-06-25] MEDS ORDERED: Albuterol-Ipratrop 3 mg / 0.5 (3 ml) UD INH PRN (13:16)
--- NOTE | 2017-06-25 13:18 | CP.PCM.CON ---
<Zander,Leilani - Last Filed: 06/25/17 13:11> History of Present Illness - History of Present Illness History of Present Illness: GI Fellow PGY4 Consult Note This is a 82 yo female with PMHX of hypothyroidism and tremor presents with AMS , acute CVA, and UTI. Pt was lethargic during hospitalizations and CT brain found acute bl [place] infarcts. GI was consulted for possible PEG. Pt unable to participate in exam, hx gathered from EMR, pt apparently able to ambulate at home prior to admission. Per primary team, family considering hospice vs PEG. Pt unable to participate in swallow evaluation. ROS: Unable to obtained due to AMS PMHx: Hypothyroidism, Essential Tremor Surgery: L radial repair FHx: HTN, RI (maternal and paternal) SH: no reported EtOH, tobacco, or illicit drug use; Lives at home with son Past Patient History - Infectious Disease Hx of Infectious Diseases: None - Past Social History Smoking Status: Never Smoked - CARDIAC Hx Atrial Fibrillation: Yes Hx Cardia Arrhythmia: Yes (a fib) Hx Hypertension: Yes - PULMONARY Hx Asthma: No Hx Pneumonia: Yes - NEUROLOGICAL Hx Dementia: Yes Hx Seizures: No - HEENT Hx HEENT Problems: Yes (eyeglasses) - RENAL Hx Chronic Kidney Disease: No - ENDOCRINE/METABOLIC Hx Hypothyroidism: Yes - HEMATOLOGICAL/ONCOLOGICAL Hx Human Immunodeficiency Virus (HIV): No - INTEGUMENTARY Hx Dermatological Problems: No - MUSCULOSKELETAL/RHEUMATOLOGICAL Hx Arthritis: Yes Hx Falls: No - GASTROINTESTINAL Hx Gastrointestinal Disorders: No - GENITOURINARY/GYNECOLOGICAL Hx Sexually Transmitted Disorders: No - PSYCHIATRIC Hx Anxiety: Yes Hx Bipolar Disorder: No Hx Depression: Yes Hx Post Traumatic Stress Disorder: No Hx Schizophrenia: No Hx Substance Use: No - SURGICAL HISTORY Hx Surgeries: Yes Hx Orthopedic Surgery: Yes (left wrist hardware in and out) Other/Comment: ORTHO SURGERY FROM PREVISOU TRIAGE - ANESTHESIA Hx Anesthesia: Yes Hx Anesthesia Reactions: No Hx Malignant Hyperthermia: No Has any member of the family had a problem w/ anesthesia?: No Meds Allergies/Adverse Reactions: Allergies Allergy/AdvReac Type Severity Reaction Status Date / Time No Known Allergies Allergy Verified 06/23/17 17:13 - Medications Medications: Current Medications Docusate Sodium (Colace) 100 mg PO BID [facility] Last Admin: 06/25/17 09:10 Dose: Not Given Heparin Sodium (Porcine) (Heparin) 5,000 units SC Q12 [facility] Last Admin: 06/25/17 09:29 Dose: 5,000 units Sodium Chloride (Sodium Chloride 0.45%) 1,000 mls @ 30 mls/hr IV .Q24H [facility] Last Admin: 06/25/17 03:30 Dose: 30 mls/hr Piperacillin Sod/Tazobactam Sod (Zosyn 3.375 Gm Iv Premix) 3.375 gm in 50 mls @ 100 mls/hr IVPB Q8H [facility] Last Admin: 06/25/17 09:29 Dose: 100 mls/hr Potassium Chloride (Potassium Chloride 20 Meq/100 Ml) 20 meq in 100 mls @ 50 mls/hr IVPB ONCE ONE Stop: 06/25/17 14:29 Pantoprazole Sodium (Protonix Inj) 40 mg IVP DAILY [facility] Last Admin: 06/25/17 09:29 Dose: 40 mg Pneumococcal Polyvalent Vaccine (Pneumovax 23 Vaccine) 0.5 ml IM .ONCE ONE Stop: 06/26/17 10:01 Thiamine HCl (Vitamin B1 Inj) 100 mg IV Q8 [facility] Last Admin: 06/25/17 05:49 Dose: 100 mg Physical Exam - Constitutional Appears: Chronically Ill Additional comments: lethargic difficult to arouse - Head Exam Head Exam: ATRAUMATIC, NORMAL INSPECTION, NORMOCEPHALIC - Eye Exam Eye Exam: PERRL - ENT Exam ENT Exam: Mucous Membranes Dry - Respiratory Exam Respiratory Exam: NORMAL BREATHING PATTERN - Cardiovascular Exam Cardiovascular Exam: RRR - GI/Abdominal Exam GI & Abdominal Exam: Normal Bowel Sounds, Soft. absent: Distended - Extremities Exam Extremities exam: Positive for: normal inspection - Psychiatric Exam Psychiatric exam: Depressed - Skin Skin Exam: Dry, Intact, Normal Color, Warm Results - Vital Signs Recent Vital Signs: Last Vital Signs Temp 99.6 F 06/25/17 09:16 Pulse 90 06/25/17 12:19 Resp 20 06/25/17 09:16 BP 114/50 L 06/25/17 09:16 Pulse Ox 97 06/25/17 09:16 - Labs Result Diagrams: 06/25/17 11:33 06/25/17 11:33 Labs: Laboratory Results - last 24 hr 06/24/17 06/25/17 06/25/17 16:36 06:18 07:51 WBC RBC Hgb Hct MCV MCH MCHC RDW Plt Count MPV Sodium Potassium Chloride Carbon Dioxide Anion Gap BUN Creatinine Est GFR ( Amer) Est GFR (Non-Af Amer) POC Glucose (mg/dL) 74 Random Glucose Calcium Total Bilirubin AST ALT Alkaline Phosphatase Total Protein Albumin Globulin Albumin/Globulin Ratio Triglycerides 69 Cholesterol 176 LDL Cholesterol Direct 120 HDL Cholesterol 33 Random Vancomycin 5.37 06/25/17 06/25/17 11:33 11:33 WBC 10.2 RBC 3.25 L Hgb 9.9 L Hct 28.8 L MCV 88.7 MCH 30.6 MCHC 34.5 RDW 12.4 Plt Count 249 MPV 8.0 Sodium 133 Potassium 3.1 L Chloride 103 Carbon Dioxide 22 Anion Gap 11 BUN 21 H Creatinine 0.7 Est GFR ( Amer) > 60 Est GFR (Non-Af Amer) > 60 POC Glucose (mg/dL) Random Glucose 80 Calcium 8.3 L Total Bilirubin 1.1 AST 44 H ALT 77 H D Alkaline Phosphatase 228 H Total Protein 5.6 L Albumin 2.8 L Globulin 2.8 Albumin/Globulin Ratio 1.0 Triglycerides Cholesterol LDL Cholesterol Direct HDL Cholesterol Random Vancomycin Assessment & Plan - Assessment and Plan (Free Text) Assessment: This is a 82yF presenting AMS with UTI. 1. Acute BL CVA 2. Lethargic 3. Dysphagia/Poor nutrition 4. UTI Plan: -Continue supportive care -Acute CVA, neurology recommendations -Pt lethargic unable to eat food -Pt may need PEG for residential nutrition -Awaiting family decision on PEG vs possible hospice care -Will continue to follow pt closely <Kevin Fernandes - Last Filed: 06/25/17 13:37> Meds - Medications Medications: Current Medications Albuterol/Ipratropium (Duoneb 3 Mg/0.5 Mg (3 Ml) Ud) 3 ml INH RQ2 PRN PRN Reason: Shortness of Breath Docusate Sodium (Colace) 100 mg PO BID [facility] Last Admin: 06/25/17 09:10 Dose: Not Given Heparin Sodium (Porcine) (Heparin) 5,000 units SC Q12 [facility] Last Admin: 06/25/17 09:29 Dose: 5,000 units Sodium Chloride (Sodium Chloride 0.45%) 1,000 mls @ 30 mls/hr IV .Q24H [facility] Last Admin: 06/25/17 03:30 Dose: 30 mls/hr Piperacillin Sod/Tazobactam Sod (Zosyn 3.375 Gm Iv Premix) 3.375 gm in 50 mls @ 100 mls/hr IVPB Q8H [facility] Last Admin: 06/25/17 09:29 Dose: 100 mls/hr Potassium Chloride (Potassium Chloride 20 Meq/100 Ml) 20 meq in 100 mls @ 50 mls/hr IVPB ONCE ONE Stop: 06/25/17 14:29 Pantoprazole Sodium (Protonix Inj) 40 mg IVP DAILY [facility] Last Admin: 06/25/17 09:29 Dose: 40 mg Pneumococcal Polyvalent Vaccine (Pneumovax 23 Vaccine) 0.5 ml IM .ONCE ONE Stop: 06/26/17 10:01 Thiamine HCl (Vitamin B1 Inj) 100 mg IV Q8 [facility] Last Admin: 06/25/17 05:49 Dose: 100 mg Results - Vital Signs Recent Vital Signs: Last Vital Signs Temp 99.6 F 06/25/17 09:16 Pulse 90 06/25/17 12:19 Resp 20 06/25/17 09:16 BP 114/50 L 06/25/17 09:16 Pulse Ox 97 06/25/17 09:16 - Labs Result Diagrams: 06/25/17 11:33 06/25/17 11:33 Labs: Laboratory Results - last 24 hr 06/24/17 06/25/17 06/25/17 16:36 06:18 07:51 WBC RBC Hgb Hct MCV MCH MCHC RDW Plt Count MPV Sodium Potassium Chloride Carbon Dioxide Anion Gap BUN Creatinine Est GFR ( Amer) Est GFR (Non-Af Amer) POC Glucose (mg/dL) 74 Random Glucose Calcium Total Bilirubin AST ALT Alkaline Phosphatase Total Protein Albumin Globulin Albumin/Globulin Ratio Triglycerides 69 Cholesterol 176 LDL Cholesterol Direct 120 HDL Cholesterol 33 Random Vancomycin 5.37 06/25/17 06/25/17 11:33 11:33 WBC 10.2 RBC 3.25 L Hgb 9.9 L Hct 28.8 L MCV 88.7 MCH 30.6 MCHC 34.5 RDW 12.4 Plt Count 249 MPV 8.0 Sodium 133 Potassium 3.1 L Chloride 103 Carbon Dioxide 22 Anion Gap 11 BUN 21 H Creatinine 0.7 Est GFR ( Amer) > 60 Est GFR (Non-Af Amer) > 60 POC Glucose (mg/dL) Random Glucose 80 Calcium 8.3 L Total Bilirubin 1.1 AST 44 H ALT 77 H D Alkaline Phosphatase 228 H Total Protein 5.6 L Albumin 2.8 L Globulin 2.8 Albumin/Globulin Ratio 1.0 Triglycerides Cholesterol LDL Cholesterol Direct HDL Cholesterol Random Vancomycin Attending/Attestation - Attestation I have personally seen and examined this patient.: Yes I have fully participated in the care of the patient.: Yes I have reviewed all pertinent clinical information: Yes Notes (Text): 06/25/17 13:36 82 yo female with admitted with acute stroke, we are consulted for PEG 1. Stroke 2. Dysphagia Plan: -family deciding re: goals of care -patient is obtunded at the moment -if aggressive care is desired, we could place a peg when patient is medically stable and family consents
--- NOTE | 2017-06-25 18:00 | PN ---
DATE: SUBJECTIVE: I saw Alex resting comfortably in bed. She is not alert. She is on IV fluids. It looks like she is sleeping. She has a very severe stroke. I do not think she is going to wake up from the stroke. She was seen by Neurology. They did recommend acute rehab, I do not think she is capable of that. GI is also seeing her. She is going to probably need a PEG tube for feedings. We will see what family wants to do, which either can be PEG tube or hospice. PHYSICAL EXAMINATION: VITAL SIGNS: 98.5 temp, 80 pulse, 91/58 blood pressure, 20 respiratory rate, 97% O2 sat on nasal cannula. HEENT: Head is atraumatic, normocephalic. HEART: Regular rate. LUNGS: Decreased breath sounds, but clear. ABDOMEN: Soft. EXTREMITIES: No edema. LABORATORY DATA: She has a 135 sodium; potassium is 3.1, I replaced the potassium. Waiting for labs to talk with today. This is yesterday's labs. BUN is 16, creatinine 0.6, AST is 40, ALT is 108, alk phos 254. White count was 9.1 yesterday, 9.3 hemoglobin, 27.6 hematocrit, and 227 platelets. MEDICATIONS: She is currently on Colace, heparin, Protonix, IV fluids, vitamin B1 and Zosyn. ASSESSMENT AND PLAN: She is being seen by Neurology, Infectious Disease and Gastroenterology. She had a very severe stroke. She has urinary tract infection, sepsis. She is unresponsive from the stroke. We are going to see about doing a feeding tube, family wants or if they want to go to hospice. I discussed with family yesterday. Anthony Blanca DO
[2017-06-25 18:55] LABS: SQUAMOUS EPITHIAL 4 /hpf (0-5); URINE AMORPHOUS SEDIMENT OCC /ul (<OCC); URINE BACTERIA OCC (<OCC); URINE BILIRUBIN NEGATIVE (NEGATIVE); URINE BLOOD 1+ (NEGATIVE); URINE CLARITY Hazy (Clear); URINE COLOR Yellow (YELLOW); URINE GLUCOSE (UA) NORMAL (Normal); URINE LEUKOCYTE ESTERASE 3+ Leu/uL (Negative); URINE NITRATE NEGATIVE (NEGATIVE); URINE PROTEIN 1+ mg/dL (NEGATIVE); URINE UROBILINOGEN NORMAL mg/dL (0.2-1.0); WBC CLUMPS FEW /hpf
--- NOTE | 2017-06-25 19:05 | CP.PCM.CON ---
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 Patient is obtunded, unable to provide information. CT/MRI head showed b/l acute strokes in PICA territories. Patient is unable to take PO meds Review of Systems - Review of Systems Review of Systems: Unable to obtain Past Patient History - Infectious Disease Hx of Infectious Diseases: None - Past Social History Smoking Status: Never Smoked - CARDIAC Hx Atrial Fibrillation: Yes Hx Cardia Arrhythmia: Yes (a fib) Hx Hypertension: Yes - PULMONARY Hx Asthma: No Hx Pneumonia: Yes - NEUROLOGICAL Hx Dementia: Yes Hx Seizures: No - HEENT Hx HEENT Problems: Yes (eyeglasses) - RENAL Hx Chronic Kidney Disease: No - ENDOCRINE/METABOLIC Hx Hypothyroidism: Yes - HEMATOLOGICAL/ONCOLOGICAL Hx Human Immunodeficiency Virus (HIV): No - INTEGUMENTARY Hx Dermatological Problems: No - MUSCULOSKELETAL/RHEUMATOLOGICAL Hx Arthritis: Yes Hx Falls: No - GASTROINTESTINAL Hx Gastrointestinal Disorders: No - GENITOURINARY/GYNECOLOGICAL Hx Sexually Transmitted Disorders: No - PSYCHIATRIC Hx Anxiety: Yes Hx Bipolar Disorder: No Hx Depression: Yes Hx Post Traumatic Stress Disorder: No Hx Schizophrenia: No Hx Substance Use: No - SURGICAL HISTORY Hx Surgeries: Yes Hx Orthopedic Surgery: Yes (left wrist hardware in and out) Other/Comment: ORTHO SURGERY FROM PREVISOU TRIAGE - ANESTHESIA Hx Anesthesia: Yes Hx Anesthesia Reactions: No Hx Malignant Hyperthermia: No Has any member of the family had a problem w/ anesthesia?: No Meds Allergies/Adverse Reactions: Allergies Allergy/AdvReac Type Severity Reaction Status Date / Time No Known Allergies Allergy Verified 06/23/17 17:13 - Medications Medications: Current Medications Acetaminophen (Tylenol 650 Mg Supp) 650 mg [place] Q6 PRN PRN Reason: Temperature > 100.4 F Last Admin: 06/25/17 17:23 Dose: 650 mg Albuterol/Ipratropium (Duoneb 3 Mg/0.5 Mg (3 Ml) Ud) 3 ml INH RQ2 PRN PRN Reason: Shortness of Breath Docusate Sodium (Colace) 100 mg PO BID [facility] Last Admin: 06/25/17 17:03 Dose: Not Given Heparin Sodium (Porcine) (Heparin) 5,000 units SC Q12 [facility] Last Admin: 01/06/18 09:29 Dose: 5,000 units Sodium Chloride (Sodium Chloride 0.45%) 1,000 mls @ 30 mls/hr IV .Q24H [facility] Last Admin: 06/25/17 03:30 Dose: 30 mls/hr Piperacillin Sod/Tazobactam Sod (Zosyn 3.375 Gm Iv Premix) 3.375 gm in 50 mls @ 100 mls/hr IVPB Q8H [facility] Last Admin: 06/25/17 17:36 Dose: 100 mls/hr Vancomycin HCl 1 gm/ Sodium (Chloride) 250 mls @ 166.7 mls/hr IVPB Q24H [facility] Pantoprazole Sodium (Protonix Inj) 40 mg IVP DAILY [facility] Last Admin: 06/25/17 09:29 Dose: 40 mg Pneumococcal Polyvalent Vaccine (Pneumovax 23 Vaccine) 0.5 ml IM .ONCE ONE Stop: 06/26/17 10:01 Thiamine HCl (Vitamin B1 Inj) 100 mg IV Q8 [facility] Last Admin: 06/25/17 14:12 Dose: 100 mg Physical Exam - Constitutional Additional comments: Obtanded, on BiPAP, does not follow commands - Head Exam Head Exam: ATRAUMATIC, NORMOCEPHALIC - Eye Exam Pupil Exam: PERRL - Respiratory Exam Respiratory Exam: Accessory Muscle Use, Rhonchi - Cardiovascular Exam Cardiovascular Exam: REGULAR RHYTHM, +S1, +S2. absent: JVD - GI/Abdominal Exam GI & Abdominal Exam: Soft. absent: Tenderness - Neurological Exam Additional comments: Obtanded/does not follow commands, spontaneous respirations - Skin Skin Exam: Dry, Warm Results - Vital Signs Recent Vital Signs: Last Vital Signs Temp 103.4 F H 06/25/17 17:23 Pulse 103 H 06/25/17 19:01 Resp 32 H 06/25/17 17:15 BP 115/55 L 06/25/17 17:15 Pulse Ox 95 06/25/17 17:15 - Labs Result Diagrams: 06/25/17 11:33 06/25/17 11:33 Labs: Laboratory Results - last 24 hr 06/25/17 06/25/17 06/25/17 06:18 07:51 11:33 WBC 10.2 RBC 3.25 L Hgb 9.9 L Hct 28.8 L MCV 88.7 MCH 30.6 MCHC 34.5 RDW 12.4 Plt Count 249 MPV 8.0 Sodium Potassium Chloride Carbon Dioxide Anion Gap BUN Creatinine Est GFR ( Amer) Est GFR (Non-Af Amer) POC Glucose (mg/dL) 74 Random Glucose Calcium Total Bilirubin AST ALT Alkaline Phosphatase Total Protein Albumin Globulin Albumin/Globulin Ratio Urine Color Urine Clarity Urine pH Ur Specific Diablo Urine Protein Urine Glucose (UA) Urine Ketones Urine Blood Urine Nitrate Urine Bilirubin Urine Urobilinogen Ur Leukocyte Esterase Urine WBC (Auto) Urine RBC (Auto) Urine WBC Clumps (Auto) Ur Squamous Epith Cells Amorphous Sediment Urine Bacteria Random Vancomycin 5.37 06/25/17 06/25/17 11:33 18:44 WBC RBC Hgb Hct MCV MCH MCHC RDW Plt Count MPV Sodium 133 Potassium 3.1 L Chloride 103 Carbon Dioxide 22 Anion Gap 11 BUN 21 H Creatinine 0.7 Est GFR ( Amer) > 60 Est GFR (Non-Af Amer) > 60 POC Glucose (mg/dL) Random Glucose 80 Calcium 8.3 L Total Bilirubin 1.1 AST 44 H ALT 77 H D Alkaline Phosphatase 228 H Total Protein 5.6 L Albumin 2.8 L Globulin 2.8 Albumin/Globulin Ratio 1.0 Urine Color Yellow Urine Clarity Hazy Urine pH 5.0 Ur Specific Diablo 1.025 Urine Protein 1+ H Urine Glucose (UA) Normal Urine Ketones 1+ H Urine Blood 1+ H Urine Nitrate Negative Urine Bilirubin Negative Urine Urobilinogen Normal Ur Leukocyte Esterase 3+ H Urine WBC (Auto) 127 H Urine RBC (Auto) 21 H Urine WBC Clumps (Auto) Few H Ur Squamous Epith Cells 4 Amorphous Sediment Occ H Urine Bacteria Occ H Random Vancomycin - EKG Data EKG comments: My review, NSR with PACs Assessment & Plan (1) Stroke Assessment and Plan: Bilateral PICA distribution Likely cardioembolic in setting of PAF Was not on anticoagulation as outpatrient for unclear reasons No PO intake Febrile, likely UTI Aspirin/Clopidogrel when able to take PO Aspirin supp until then High dose statin Status: Acute (2) Atrial fibrillation Assessment and Plan: Paroxysmal AF Not on anticoagulation and currently high risk for bleed Temp reduction to decrese HR Currently in SR Status: Acute
[2017-06-25] MEDS: Vancomycin 1 GM in Sodium Chloride 0.9% 200 ML IVPB SCH (20:40)
--- NOTE | 2017-06-25 21:13 | RAD ---
HISTORY: SOB COMPARISON: Comparison is made with the previous study dated 06/23/2017 FINDINGS: LUNGS: No evidence of new infiltrate or consolidation in the lungs. Mild hyperinflation of the lungs is again noted PLEURA: No significant pleural effusion identified, no pneumothorax apparent. CARDIOVASCULAR: Normal. OSSEOUS STRUCTURES: No significant abnormalities. VISUALIZED UPPER ABDOMEN: Normal. OTHER FINDINGS: None. IMPRESSION: No active disease.
[2017-06-26] MEDS: Piperacill/Tazo 3.375gm in Dex 3.375 GM/50 ML BAG IVPB SCH ×3 (02:17→18:46)
[2017-06-26] MEDS: Thiamine 100 mg/ml Inj IV SCH ×3 (06:07→21:54)
[2017-06-26 09:01] LABS: HEMOGLOBIN 10.2 g/dL (11.0-16.0); MEAN CELL VOLUME 89.7 fL (81.0-99.0); MEAN CORPUSCULAR HEMOGLOBIN 30.1 pg (27.0-31.0); MEAN CORPUSCULAR HGB CONC 33.5 g/dL (33.0-37.0); MEAN PLATELET VOLUME 8.1 fL (7.2-11.7); RBC 3.38 Mil/uL (3.80-5.20); RED CELL DISTRIBUTION WIDTH 12.3 % (11.5-14.5)
[2017-06-26 09:06] LABS: WHITE BLOOD COUNT 21.8 K/uL (4.8-10.8)
[2017-06-26 09:34] LABS: ALBUMIN 2.8 g/dL (3.5-5.0); ALT/SGPT 67 U/L (9-52); AST/SGOT 48 U/L (14-36); BLOOD UREA NITROGEN 24 mg/dL (7-17); CALCIUM 8.1 mg/dl (8.6-10.4); GFR AFRICAN-AMERICAN > 60; GFR NON-AFRICAN AMERICAN > 60
--- NOTE | 2017-06-26 09:44 | CP.PCM.PN ---
<ZanderLeilani - Last Filed: 06/26/17 09:41> Subjective - Date & Time of Evaluation Date of Evaluation: 06/26/17 Time of Evaluation: 08:10 - Subjective Subjective: GI Fellow PGY4 Progress Note Pt seen and evaluated at bedside, pt not arousable on BIPAP FiO2 of 80%, does not appear well. ROS: A 12pt ROS unable to be obtained Objective - Vital Signs/Intake and Output Vital Signs (last 24 hours): Temp Pulse Resp BP Pulse Ox 99.4 F 89 20 93/51 L 100 06/26/17 06:49 06/26/17 08:30 06/26/17 06:49 06/26/17 06:49 06/26/17 06:49 Intake and Output: 06/26/17 06/26/17 06:59 18:59 Intake Total 340 Output Total 950 Balance -610 - Medications Medications: Current Medications Acetaminophen (Tylenol 650 Mg Supp) 650 mg IN Q6 PRN PRN Reason: Temperature > 100.4 F Last Admin: 06/25/17 17:23 Dose: 650 mg Albuterol/Ipratropium (Duoneb 3 Mg/0.5 Mg (3 Ml) Ud) 3 ml INH RQ2 PRN PRN Reason: Shortness of Breath Aspirin (Aspirin Supp) 300 mg IN DAILY [facility] Last Admin: 06/25/17 22:21 Dose: 300 mg Docusate Sodium (Colace) 100 mg PO BID [facility] Last Admin: 06/25/17 17:03 Dose: Not Given Heparin Sodium (Porcine) (Heparin) 5,000 units SC Q12 [facility] Last Admin: 06/25/17 22:21 Dose: 5,000 units Sodium Chloride (Sodium Chloride 0.45%) 1,000 mls @ 30 mls/hr IV .Q24H [facility] Last Admin: 06/25/17 03:30 Dose: 30 mls/hr Piperacillin Sod/Tazobactam Sod (Zosyn 3.375 Gm Iv Premix) 3.375 gm in 50 mls @ 100 mls/hr IVPB Q8H [facility] Last Admin: 06/26/17 02:17 Dose: 100 mls/hr Vancomycin HCl 1 gm/ Sodium (Chloride) 200 mls @ 166.7 mls/hr IVPB Q24H [facility] Last Admin: 06/25/17 20:40 Dose: 166.7 mls/hr Pantoprazole Sodium (Protonix Inj) 40 mg IVP DAILY [facility] Last Admin: 06/25/17 09:29 Dose: 40 mg Pneumococcal Polyvalent Vaccine (Pneumovax 23 Vaccine) 0.5 ml IM .ONCE ONE Stop: 06/26/17 10:01 Thiamine HCl (Vitamin B1 Inj) 100 mg IV Q8 [facility] Last Admin: 06/26/17 06:07 Dose: 100 mg - Labs Labs: 06/26/17 08:50 06/26/17 08:50 PT 11.7 SECONDS (9.7-12.2) 06/23/17 17:38 INR 1.0 06/23/17 17:38 APTT 28 SECONDS (21-34) 06/23/17 17:38 - Constitutional Appears: Cachectic - Head Exam Head Exam: ATRAUMATIC, NORMAL INSPECTION, NORMOCEPHALIC - Eye Exam Eye Exam: PERRL - ENT Exam ENT Exam: Mucous Membranes Dry - Respiratory Exam Respiratory Exam: Rhonchi, Respiratory Distress - Cardiovascular Exam Cardiovascular Exam: Tachycardia - GI/Abdominal Exam GI & Abdominal Exam: Soft, Normal Bowel Sounds. absent: Distended, Rigid, Tenderness - Rectal Exam Rectal Exam: Deferred - Extremities Exam Extremities Exam: Normal Inspection - Back Exam Back Exam: NORMAL INSPECTION - Psychiatric Exam Psychiatric exam: Depressed - Skin Skin Exam: Dry, Intact, Pallor, Warm Assessment and Plan - Assessment and Plan (Free Text) Assessment: This is a 82yF presenting AMS with UTI. 1. Acute BL CVA 2. Lethargic 3. Dysphagia/Poor nutrition 4. UTI, Sepsis Plan: -Continue supportive care -Continue abx for UTI -Currently on BIPAP FiO2 80% -Acute CVA -Pt lethargic unable to eat food -Pt may need PEG for intermediate nutrition -Awaiting family decision on PEG vs possible hospice care -Will continue to follow pt closely <Kevin Fernandes - Last Filed: 06/26/17 13:24> Objective - Vital Signs/Intake and Output Vital Signs (last 24 hours): Temp Pulse Resp BP Pulse Ox 98.5 F 88 18 106/54 L 100 06/26/17 11:00 06/26/17 13:19 06/26/17 08:00 06/26/17 08:00 06/26/17 08:00 Intake and Output: 01/07/18 01/07/18 06:59 18:59 Intake Total 340 Output Total 950 Balance -610 - Medications Medications: Current Medications Acetaminophen (Tylenol 650 Mg Supp) 650 mg IN Q6 PRN PRN Reason: Temperature > 100.4 F Last Admin: 06/26/17 10:00 Dose: 650 mg Albuterol/Ipratropium (Duoneb 3 Mg/0.5 Mg (3 Ml) Ud) 3 ml INH RQ2 PRN PRN Reason: Shortness of Breath Aspirin (Aspirin Supp) 300 mg IN DAILY [facility] Last Admin: 06/26/17 10:00 Dose: 300 mg Docusate Sodium (Colace) 100 mg PO BID [facility] Last Admin: 06/26/17 09:53 Dose: Not Given Heparin Sodium (Porcine) (Heparin) 5,000 units SC Q12 [facility] Last Admin: 06/26/17 09:59 Dose: 5,000 units Sodium Chloride (Sodium Chloride 0.45%) 1,000 mls @ 30 mls/hr IV .Q24H [facility] Last Admin: 06/25/17 03:30 Dose: 30 mls/hr Piperacillin Sod/Tazobactam Sod (Zosyn 3.375 Gm Iv Premix) 3.375 gm in 50 mls @ 100 mls/hr IVPB Q8H [facility] Last Admin: 06/26/17 09:59 Dose: 100 mls/hr Vancomycin HCl 1 gm/ Sodium (Chloride) 200 mls @ 166.7 mls/hr IVPB Q24H [facility] Last Admin: 06/25/17 20:40 Dose: 166.7 mls/hr Potassium Chloride (Potassium Chloride 20 Meq/100 Ml) 20 meq in 100 mls @ 50 mls/hr IVPB Q4 [facility] Stop: 06/26/17 17:59 Pantoprazole Sodium (Protonix Inj) 40 mg IVP DAILY [facility] Last Admin: 06/26/17 09:59 Dose: 40 mg Thiamine HCl (Vitamin B1 Inj) 100 mg IV Q8 [facility] Last Admin: 06/26/17 06:07 Dose: 100 mg - Labs Labs: 06/26/17 08:50 06/26/17 08:50 PT 11.7 SECONDS (9.7-12.2) 06/23/17 17:38 INR 1.0 06/23/17 17:38 APTT 28 SECONDS (21-34) 06/23/17 17:38 Attending/Attestation - Attestation I have personally seen and examined this patient.: Yes I have fully participated in the care of the patient.: Yes I have reviewed all pertinent clinical information, including history, physical exam and plan: Yes Notes (Text): 06/26/17 13:24 82 yo female with admitted with acute stroke, we are consulted for PEG 1. Stroke 2. Dysphagia Plan: -family deciding re: goals of care -patient is obtunded at the moment and in respiratory distress -if aggressive care is desired, we could place a peg when patient is medically stable and family consents, although she doesn't appear medically stable at the moment
[2017-06-26] MEDS ORDERED: Pneumococcal 23-Valent Vaccine IM ONE (10:00)
--- NOTE | 2017-06-26 12:43 | PN ---
DATE: SUBJECTIVE: She is in bed. She is on VentiMask. She is not waking up. She is just lying there. She has IV fluids running, aspirin, Colace, DuoNeb, Zosyn, potassium replacement, Protonix, Tylenol, vancomycin, was given thiamine. PHYSICAL EXAMINATION: VITAL SIGNS: Blood pressures of 82/30 and 92/51, temperatures range from 99.4 to 104.4 dose of vancomycin, respiratory rate is 20, O2 between 97% and 100% on BiPAP. HEENT: Head is atraumatic, normocephalic. HEART: Regular rate. LUNGS: Decreased breath sounds, but clear. ABDOMEN: Soft. EXTREMITIES: No edema. LABORATORY DATA: She has 133 sodium. Potassium 3.1, potassium is replaced. BUN 21, creatinine 0.7, GFR is greater than 60, sugar is 80, calcium is 8.3, total bilirubin is 1.1, AST is 44, ALT is 77, alkaline phosphatase is 228, total protein is 5.6, cholesterol is 176. TSH is less than 0.02. White count 10.2, hemoglobin 9.9, hematocrit 28.8, platelets 249,000. She has an urine growing Providencia rettgeri. She has been seen by Infectious Disease, GI for possible percutaneous endoscopic gastrostomy tube placement, Neurology; I am waiting for family to let me know if they wanted to do percutaneous endoscopic gastrostomy tube with hospice. The patient with severe cerebrovascular accident, urinary tract infection, sepsis, unresponsive, atrial fibrillation. Anthony Blanca DO MTDD
[2017-06-26] MEDS: Sodium Chloride 0.45% 1,000 ML IV SCH (18:50)
[2017-06-26] MEDS: Vancomycin 1 GM in Sodium Chloride 0.9% 200 ML IVPB SCH (20:26)
[2017-06-27] MEDS: Piperacill/Tazo 3.375gm in Dex 3.375 GM/50 ML BAG IVPB SCH ×3 (02:45→18:22)
[2017-06-27] MEDS: Thiamine 100 mg/ml Inj IV SCH ×2 (06:00→14:50)
[2017-06-27] MEDS: Sodium Chloride 0.45% 1,000 ML IV SCH ×2 (07:13→22:17)
[2017-06-27 08:03] LABS: HEMOGLOBIN 9.3 g/dL (11.0-16.0); MEAN CELL VOLUME 89.4 fL (81.0-99.0); MEAN CORPUSCULAR HEMOGLOBIN 29.3 pg (27.0-31.0); MEAN CORPUSCULAR HGB CONC 32.8 g/dL (33.0-37.0); MEAN PLATELET VOLUME 8.5 fL (7.2-11.7); RBC 3.17 Mil/uL (3.80-5.20); RED CELL DISTRIBUTION WIDTH 12.5 % (11.5-14.5); WHITE BLOOD COUNT 16.5 K/uL (4.8-10.8)
[2017-06-27 08:06] LABS: INR 1.2; PROTHROMBIN TIME 13.6 SECONDS (9.7-12.2)
--- NOTE | 2017-06-27 08:27 | CP.PCM.PN ---
<ZanderLeilani - Last Filed: 06/27/17 11:32> Subjective - Date & Time of Evaluation Date of Evaluation: 06/27/17 Time of Evaluation: 06:50 - Subjective Subjective: GI Fellow PGY4 Progress Note Pt seen and evaluated at bedside, pt not arousable on BIPAP FiO2 of 80%, does not appear well. ROS: A 12pt ROS unable to be obtained Objective - Vital Signs/Intake and Output Vital Signs (last 24 hours): Temp Pulse Resp BP Pulse Ox 96.8 F L 58 L 20 98/53 L 95 06/27/17 04:15 06/27/17 04:15 06/27/17 04:15 06/27/17 04:15 06/27/17 04:15 Intake and Output: 06/27/17 06/27/17 06:59 18:59 Intake Total 650 Output Total 500 Balance 150 - Medications Medications: Current Medications Acetaminophen (Tylenol 650 Mg Supp) 650 mg FL Q6 PRN PRN Reason: Temperature > 100.4 F Last Admin: 06/26/17 10:00 Dose: 650 mg Albuterol/Ipratropium (Duoneb 3 Mg/0.5 Mg (3 Ml) Ud) 3 ml INH RQ2 PRN PRN Reason: Shortness of Breath Aspirin (Aspirin Supp) 300 mg FL DAILY [facility] Last Admin: 06/26/17 10:00 Dose: 300 mg Docusate Sodium (Colace) 100 mg PO BID [facility] Last Admin: 06/26/17 17:28 Dose: Not Given Heparin Sodium (Porcine) (Heparin) 5,000 units SC Q12 [facility] Last Admin: 06/26/17 21:55 Dose: 5,000 units Sodium Chloride (Sodium Chloride 0.45%) 1,000 mls @ 30 mls/hr IV .Q24H [facility] Last Admin: 06/27/17 07:13 Dose: 30 mls/hr Piperacillin Sod/Tazobactam Sod (Zosyn 3.375 Gm Iv Premix) 3.375 gm in 50 mls @ 100 mls/hr IVPB Q8H [facility] Last Admin: 06/27/17 02:45 Dose: 100 mls/hr Vancomycin HCl 1 gm/ Sodium (Chloride) 200 mls @ 166.7 mls/hr IVPB Q24H [facility] Last Admin: 06/26/17 20:26 Dose: 166.7 mls/hr Pantoprazole Sodium (Protonix Inj) 40 mg IVP DAILY [facility] Last Admin: 06/26/17 09:59 Dose: 40 mg Thiamine HCl (Vitamin B1 Inj) 100 mg IV Q8 [facility] Last Admin: 06/27/17 06:00 Dose: 100 mg - Labs Labs: 06/27/17 07:21 06/26/17 08:50 PT 13.6 SECONDS (9.7-12.2) H 06/27/17 07:21 INR 1.2 06/27/17 07:21 APTT 28 SECONDS (21-34) 06/23/17 17:38 - Constitutional Appears: In Acute Distress, Cachectic, Chronically Ill - Head Exam Head Exam: ATRAUMATIC, NORMAL INSPECTION, NORMOCEPHALIC - Eye Exam Eye Exam: PERRL - ENT Exam ENT Exam: Mucous Membranes Dry - Respiratory Exam Respiratory Exam: Rhonchi, Respiratory Distress - Cardiovascular Exam Cardiovascular Exam: Tachycardia - GI/Abdominal Exam GI & Abdominal Exam: Soft, Normal Bowel Sounds. absent: Distended, Tenderness - Rectal Exam Rectal Exam: Deferred - Extremities Exam Extremities Exam: Normal Inspection - Psychiatric Exam Psychiatric exam: Depressed - Skin Skin Exam: Dry, Intact, Normal Color, Warm Assessment and Plan - Assessment and Plan (Free Text) Assessment: This is a 82yF presenting AMS with UTI. 1. Acute BL CVA 2. Lethargic 3. Dysphagia/Poor nutrition 4. UTI, Sepsis Plan: -Continue supportive care -Continue abx for UTI -Currently on BIPAP FiO2 80% -Acute CVA -Pt lethargic unable to eat food -Awaiting family decision on PEG vs possible hospice care, pt not medically stable for procedure at this time -Will continue to follow pt closely <Ignacio Kirk MD - Last Filed: 06/27/17 12:13> Objective - Vital Signs/Intake and Output Vital Signs (last 24 hours): Temp Pulse Resp BP Pulse Ox 96.8 F L 90 20 98/53 L 95 06/27/17 04:15 06/27/17 08:30 06/27/17 04:15 06/27/17 04:15 06/27/17 04:15 Intake and Output: 06/27/17 06/27/17 06:59 18:59 Intake Total 650 Output Total 500 Balance 150 - Medications Medications: Current Medications Acetaminophen (Tylenol 650 Mg Supp) 650 mg FL Q6 PRN PRN Reason: Temperature > 100.4 F Last Admin: 06/26/17 10:00 Dose: 650 mg Albuterol/Ipratropium (Duoneb 3 Mg/0.5 Mg (3 Ml) Ud) 3 ml INH RQ2 PRN PRN Reason: Shortness of Breath Aspirin (Aspirin Supp) 300 mg FL DAILY [facility] Last Admin: 06/27/17 10:01 Dose: 300 mg Docusate Sodium (Colace) 100 mg PO BID [facility] Last Admin: 06/27/17 10:01 Dose: Not Given Sodium Chloride (Sodium Chloride 0.45%) 1,000 mls @ 30 mls/hr IV .Q24H [facility] Last Admin: 06/27/17 07:13 Dose: 30 mls/hr Piperacillin Sod/Tazobactam Sod (Zosyn 3.375 Gm Iv Premix) 3.375 gm in 50 mls @ 100 mls/hr IVPB Q8H [facility] Last Admin: 06/27/17 10:02 Dose: 100 mls/hr Vancomycin HCl 1 gm/ Sodium (Chloride) 200 mls @ 166.7 mls/hr IVPB Q24H [facility] Last Admin: 06/26/17 20:26 Dose: 166.7 mls/hr Pantoprazole Sodium (Protonix Inj) 40 mg IVP DAILY [facility] Last Admin: 06/27/17 10:02 Dose: 40 mg Thiamine HCl (Vitamin B1 Inj) 100 mg IV Q8 [facility] Last Admin: 06/27/17 06:00 Dose: 100 mg - Labs Labs: 06/27/17 07:21 06/27/17 07:21 PT 13.6 SECONDS (9.7-12.2) H 06/27/17 07:21 INR 1.2 06/27/17 07:21 APTT 28 SECONDS (21-34) 06/23/17 17:38 Attending/Attestation - Attestation I have personally seen and examined this patient.: Yes I have fully participated in the care of the patient.: Yes I have reviewed all pertinent clinical information, including history, physical exam and plan: Yes Notes (Text): 06/27/17 12:09 Patient seen with GI fellow on rounds this am. This is a 82 yo female with admitted with acute stroke, we are consulted for PEG. Today she was on BIPAP using diaphragmatic breathing. She is on 60% FiO2. I feel she will be intubated for the procedure as she is high risk for aspiration. Team to discuss with family regarding reversing DNR/DNI and goals of care. Currently getting treatment for UTI on antibiotics with leukocytosis. Grim prognosis. Please reconsult prn once above accomplished and patient is medically stable for anesthesia and procedure
[2017-06-27 08:37] LABS: ALBUMIN 2.7 g/dL (3.5-5.0); ALT/SGPT 53 U/L (9-52); AST/SGOT 42 U/L (14-36); BLOOD UREA NITROGEN 24 mg/dL (7-17); CALCIUM 8.4 mg/dl (8.6-10.4); GFR AFRICAN-AMERICAN > 60; GFR NON-AFRICAN AMERICAN > 60
--- NOTE | 2017-06-27 10:44 | PN ---
DATE: SUBJECTIVE: She is resting in bed. She is not awake. She has oxygen on. No apparent distress. She is on aspirin, Colace, DuoNeb, heparin, Protonix, IV fluids, Tylenol, vancomycin IV, vitamin B1 and Zosyn IV. PHYSICAL EXAMINATION: VITAL SIGNS: She has a 96.8 temp, 58 pulse, 98/53 blood pressure, 95% O2 sat on BiPAP. Her temperature was high as 100.2, 104 the other day. She has been on a cooling blanket from time to time. HEENT: Head is atraumatic, normocephalic. HEART: Regular rate. LUNGS: Decreased breath sounds, poor inspiration. ABDOMEN: Soft. EXTREMITIES: No edema. She is being rotated. LABORATORY DATA: She has 21.8 white count, 10.2 hemoglobin, 30.2 hematocrit, with a 232 platelets. She has 137 sodium, potassium down to 2.9, replaced potassium yesterday. BUN 24, creatinine 0.8, GFR is greater than 60, sugar is 89, calcium is 8.1, total bilirubin is 1.1, AST is 48, ALT is 67, alkaline phosphatase 203, total protein 5.7. She is failing. She has a very severe cerebrovascular accident, now I believe she is becoming septic. She is being seen by GI for possible PEG tube. Discussed with the family wishes. Infectious Disease to help us with antibiotics for the infection she is having, and Neurology. I discussed with the family about hospice, stopping everything and let her be versus putting a feeding tube in her and keep period of time. Hopefully, we will make the decision today. I discussed with the case manger about comfort care hospice and possibly at the home. The patient has severe cerebrovascular accident, now she is becoming septic. Anthony Blanca DO MTDD
--- NOTE | 2017-06-27 12:34 | CP.PCM.PN ---
Subjective - Date & Time of Evaluation Date of Evaluation: 06/27/17 Time of Evaluation: 08:00 - Subjective Subjective: comatose fever on and off iv rx in progress poor prognosis Objective - Vital Signs/Intake and Output Vital Signs (last 24 hours): Temp Pulse Resp BP Pulse Ox 96.8 F L 90 20 98/53 L 95 06/27/17 04:15 06/27/17 08:30 06/27/17 04:15 06/27/17 04:15 06/27/17 04:15 Intake and Output: 06/27/17 06/27/17 06:59 18:59 Intake Total 650 Output Total 500 Balance 150 - Medications Medications: Current Medications Acetaminophen (Tylenol 650 Mg Supp) 650 mg RI Q6 PRN PRN Reason: Temperature > 100.4 F Last Admin: 06/26/17 10:00 Dose: 650 mg Albuterol/Ipratropium (Duoneb 3 Mg/0.5 Mg (3 Ml) Ud) 3 ml INH RQ2 PRN PRN Reason: Shortness of Breath Aspirin (Aspirin Supp) 300 mg RI DAILY [facility] Last Admin: 06/27/17 10:01 Dose: 300 mg Docusate Sodium (Colace) 100 mg PO BID [facility] Last Admin: 06/27/17 10:01 Dose: Not Given Sodium Chloride (Sodium Chloride 0.45%) 1,000 mls @ 30 mls/hr IV .Q24H [facility] Last Admin: 06/27/17 07:13 Dose: 30 mls/hr Piperacillin Sod/Tazobactam Sod (Zosyn 3.375 Gm Iv Premix) 3.375 gm in 50 mls @ 100 mls/hr IVPB Q8H [facility] Last Admin: 06/27/17 10:02 Dose: 100 mls/hr Vancomycin HCl 1 gm/ Sodium (Chloride) 200 mls @ 166.7 mls/hr IVPB Q24H [facility] Last Admin: 06/26/17 20:26 Dose: 166.7 mls/hr Pantoprazole Sodium (Protonix Inj) 40 mg IVP DAILY [facility] Last Admin: 06/27/17 10:02 Dose: 40 mg Thiamine HCl (Vitamin B1 Inj) 100 mg IV Q8 [facility] Last Admin: 06/27/17 06:00 Dose: 100 mg - Labs Labs: 06/27/17 07:21 06/27/17 07:21 PT 13.6 SECONDS (9.7-12.2) H 06/27/17 07:21 INR 1.2 06/27/17 07:21 APTT 28 SECONDS (21-34) 06/23/17 17:38 - Constitutional Appears: Confused, Cachectic, Chronically Ill - Head Exam Head Exam: NORMOCEPHALIC - Eye Exam Eye Exam: absent: Scleral icterus - ENT Exam ENT Exam: Mucous Membranes Dry - Neck Exam Neck Exam: absent: Lymphadenopathy - Respiratory Exam Respiratory Exam: Decreased Breath Sounds - Cardiovascular Exam Cardiovascular Exam: REGULAR RHYTHM - GI/Abdominal Exam GI & Abdominal Exam: Distended - Rectal Exam Rectal Exam: Deferred - Exam Exam: NORMAL INSPECTION - Extremities Exam Extremities Exam: absent: Pedal Edema - Back Exam Back Exam: absent: CVA tenderness (L), CVA tenderness (R) - Neurological Exam Neurological Exam: Altered Assessment and Plan (1) Altered mental status Status: Acute (2) Urinary tract infection Status: Acute (3) Atrial fibrillation Status: Acute
[2017-06-27] MEDS: Vancomycin 1 GM in Sodium Chloride 0.9% 200 ML IVPB SCH (19:02)
[2017-06-28 08:11] VITALS: BP 90/41; PULSE 42; TEMP 97.5
--- NOTE | 2017-06-28 08:11 | PN ---
DATE: 06/27/2017 NEUROLOGY FOLLOWUP CHIEF COMPLAINT: Follow up for altered mental status. SUBJECTIVE: Patient seen and examined at bedside. Patient is on antibiotics per ID for underlying UTI. Patient is not arousable, on BiPAP, FiO2 of 80%. Carotid Doppler was done, which showed no significant hemodynamic stenosis. Currently, her blood pressures are systolically and diastolically on the lower side. PAST MEDICAL HISTORY: History of AFib, arthritis, anxiety, depression, and hyperthyroidism. REVIEW OF SYSTEMS: Difficult to obtain due to patient's altered mental status. FAMILY HISTORY: Noncontributory. SOCIAL HISTORY: No illicit drug use, smoking or EtOH abuse. ALLERGIES: NO KNOWN DRUG ALLERGIES. MEDICATIONS: Reviewed by nurse reconciliation sheet. PHYSICAL EXAMINATION: VITAL SIGNS: Temperature 97.3, pulse rate is 72, blood pressure 197/56, respiratory rate 18, oxygen saturation 98% on room air. GENERAL: Patient is drowsy, in no acute distress. HEENT: Atraumatic, normocephalic. PERRLA. Extraocular muscles intact. NECK: Supple. No JVD, no adenopathy noted. LUNGS: Clear to auscultation. No adventitious sounds. HEART: S1, S2. Normal rate and rhythm. No murmurs, rubs or gallops. ABDOMEN: Soft, nontender, nondistended. Bowel sounds are present. EXTREMITIES: No clubbing, no cyanosis. Peripheral pulses 2+ felt bilaterally. NEUROLOGIC: Patient is non-communicative, in deep sleep. Speech is difficult to asses at this time. Cranial nerves II through XII intact. Some right facial droop. Motor: Generalized weakness, right side has been more weaker than the left, withdraws are localized to noxious stimulus. DTRs 1+ throughout. Gait is deferred for now. LABORATORY DATA: Sodium 138, potassium 2.5, chloride is 107, carbon dioxide 23, BUN of 24, creatinine 0.6, random glucose of 73. 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 The reason why she is drowsy and altered is because of her cerebellar infarcts especially in the bilateral which is mostly part of the reticular activating system of the brain. At this time, her infarction is likely secondary to watershed distribution from drops in her systolic and diastolic blood pressures. She remains in a chronic drowsy state. GI has evaluated for possible percutaneous endoscopic gastrostomy tube for nutritional. RECOMMENDATIONS: At this time, recommend: 1. Aspirin 81, Plavix 75 mg p.o. daily, Lipitor 80 mg p.o. daily for stroke prevention. 2. Continue with antibiotics per ID for underlying urinary tract infection. 3. Likely need a PEG tube for possible nutrition to the . 4. Awaiting family's decision versus PEG versus hospice care. At this time, continue with supportive care. 5. Continue with BiPAP. 6. PT and OT eval once patient is much more alert. 7. Thiamine 100 mg p.o. b.i.d. IV. 8. Keep systolic blood pressure between 120s to 140s systolic mmHg and diastolic 70 to 80s. Once again, thank you for this followup. Tom Hoyos MD
[2017-06-28 09:33] VITALS: RESP 18; O2SAT 100
--- NOTE | 2017-06-28 10:06 | PN ---
DATE: SUBJECTIVE: She is now on hospice. I discussed at length with the family and the hospice nurse. She is resting comfortably in bed, not alert. She has a very bad severe bilateral CVA and brain stem CVA. She is breathing with a CPAP. There is no more IVs. PHYSICAL EXAMINATION: VITAL SIGNS: She has a 98.9 temperature, she is on a cooling blanket, 61 pulse, 116/58 blood pressure, 20 respiratory rate, 99% O2 saturation on room air. HEENT: Head is atraumatic, normocephalic. HEART: Regular rate. LUNGS: Decreased breath sounds, but clear. ABDOMEN: Soft. EXTREMITIES: No edema, mildly contracted. No secretions. MEDICATIONS: She is only on Tylenol as needed. LABORATORY DATA: No more labs anymore. ASSESSMENT AND PLAN: She is seen by Infectious Disease, GI, but now she is on hospice. We will let her rest as comfortably as possibly in bed, keep her pain free and comfortable as possible. Severe bilateral cerebrovascular accident. Anthony Blanca DO
--- NOTE | 2017-06-28 11:37 | CP.PCM.PN ---
Subjective - Date & Time of Evaluation Date of Evaluation: 06/28/17 Time of Evaluation: 11:40 - Subjective Subjective: AGRICULTURE LABORER NOTES 82 yo female with h/o HTN/PAF/T2D/dementia was brought from rehab for worsening mental status CT/MRI head showed b/l acute strokes in PICA territories. code status DNR/DNI Patient accepted at [facility] and family in agreement D/W Dr. Blanca, and agrees with plan and patient will be admitted inpatient hospice under [facility] Objective - Vital Signs/Intake and Output Vital Signs (last 24 hours): Temp Pulse Resp BP Pulse Ox 97.5 F L 42 L 18 90/41 L 100 06/28/17 09:00 06/28/17 09:00 06/28/17 09:00 06/28/17 09:00 06/28/17 09:00 Intake and Output: 06/28/17 06/28/17 06:59 18:59 Intake Total 210 Output Total 400 Balance -190 - Medications Medications: Current Medications Acetaminophen (Tylenol 650 Mg Supp) 650 mg [place] Q6 PRN PRN Reason: Temperature > 100.4 F Last Admin: 06/26/17 10:00 Dose: 650 mg - Labs Labs: 06/27/17 07:21 06/27/17 07:21 PT 13.6 SECONDS (9.7-12.2) H 06/27/17 07:21 INR 1.2 06/27/17 07:21 APTT 28 SECONDS (21-34) 06/23/17 17:38
== END 2017-06-28 11:54 | disposition hospice, inpatient (51) | DRG 64 ==
LOC: C.ER 17:02 → C.9E 18:39 → C.6T 06-24 19:19
PROVIDERS: ADMIT Family Medicine; ATTEND Family Medicine
PROC: 5A09457 Assistance with Respiratory Ventilation, 24-96 Consecutive Hours, Continuous Positive Airway Pressure (ICD-10-PCS; principal; 2017-06-25)
DX: I63.433 Cerebral infarction due to embolism of bilateral posterior cerebral arteries (principal); G93.49 Other encephalopathy; R65.20 Severe sepsis without septic shock; A41.9 Sepsis, unspecified organism; R13.10 Dysphagia, unspecified; N39.0 Urinary tract infection, site not specified; I48.0 Paroxysmal atrial fibrillation; F03.90 Unspecified dementia, unspecified severity, without behavioral disturbance, psychotic disturbance, mood disturbance, and anxiety; Z66 Do not resuscitate; I10 Essential (primary) hypertension; F32.9 Major depressive disorder, single episode, unspecified; E03.9 Hypothyroidism, unspecified; F41.9 Anxiety disorder, unspecified; M19.90 Unspecified osteoarthritis, unspecified site; R41.82 Altered mental status, unspecified; E87.6 Hypokalemia

== ENCOUNTER 2017-06-28 11:33 | Inpatient (IN) | payer OTHER ==
--- NOTE | 2017-06-29 12:10 | PN ---
DATE: SUBJECTIVE: I saw Alex resting comfortably in bed. She is on nasal cannula O2. She is on Ativan, morphine and Tylenol as needed. She is not alert. She cannot be alert due to the severe stroke. No acute distress PHYSICAL EXAMINATION: VITAL SIGNS: She has a 98.1 temp, 50 pulse, 99/48 blood pressure, 20 respiratory rate, 97% O2 sat on nasal cannula 2 L. HEENT: Her head is atraumatic, normocephalic. HEART: Regular rate. LUNGS: Decreased breath sounds. ABDOMEN: Soft. EXTREMITIES: No edema. ASSESSMENT AND PLAN: multiple phone calls from hospice nurses. Continue to keep the patient comfortable, as pain free as possible, and inpatient hospice. She had severe bilateral brain cerebrovascular accident into the brainstem, unresponsive. Anthony Blanca DO MTDD
--- NOTE | 2017-06-30 10:26 | PN ---
DATE: SUBJECTIVE: She was seen in bed, alert and awake. She is breathing with oxygen, in no apparent distress. PHYSICAL EXAMINATION VITAL SIGNS: She has a 99.1 temp, 71 pulse, 122/70 blood pressure, 20 respiratory rate O2 sat HEENT: Her head is atraumatic, normocephalic. HEART: Regular rate. LUNGS: Decreased breath sounds. ABDOMEN: Soft, nontender. EXTREMITIES: No edema. Mildly contracted. MEDICATIONS: She only gets Ativan LABORATORY DATA:. ASSESSMENT AND PLAN: hospice Anthony Blanca DO MTDD
--- NOTE | 2017-07-01 09:27 | PN ---
DATE: SUBJECTIVE: I saw Alex in her room at [facility]. She is breathing with oxygen. She is not awake, not alert, not having temperature. She is now in hospice. PHYSICAL EXAMINATION: VITAL SIGNS: She has 101.5 temperature. HEENT: Head is atraumatic, normocephalic. HEART: Regular rate. LUNGS: Decreased breath sounds. ABDOMEN: Soft, decreased bowel sounds. EXTREMITIES: No edema. NEUROLOGIC: She is not in mood. She is not alert. She is not talking. She has severe bilateral CVA and brain stem involvement. She is now in hospice. LABORATORY DATA: None. MEDICATIONS: P.r.n. Ativan,morphine, and Tylenol. ASSESSMENT AND PLAN: We will continue aggressive treatment and care in hospice, which is keeping her comfortable and pain free as possible and doing very little making sure she lives peacefully. Anthony Blanca DO
[2017-07-01] MEDS: Vitamins A & D Oint UD Foilpak TOP SCH (12:55)
[2017-07-02] MEDS: Vitamins A & D Oint UD Foilpak TOP SCH ×6 (00:28→20:00)
--- NOTE | 2017-07-02 13:23 | PN ---
DATE: SUBJECTIVE: She was seen in bed, is not alert, no acute distress. Urine is darker. PHYSICAL EXAMINATION: VITAL SIGNS: She has 101.5 temperature, 108 pulse, 100/48 blood pressure, 20 respiratory rate, 97% O2 sat on nasal canula 5 L. HEENT: Head is atraumatic and normocephalic. HEART: Regular rate. LUNGS: Clear to auscultation. ASSESSMENT AND PLAN: We will continue with peaceful and pain-free care and she is failing and she is on comfort care. Anthony Blanca DO MTDD
[2017-07-03] MEDS: Vitamins A & D Oint UD Foilpak TOP SCH ×4 (10:10→20:13)
--- NOTE | 2017-07-03 12:56 | PN ---
DATE: SUBJECTIVE: I saw her resting comfortably in bed, in no acute distress, on nasal cannula. She was getting Ativan, morphine, Tylenol and vitamin A ointment as needed. PHYSICAL EXAMINATION: GENERAL: She is not alert. VITAL SIGNS: She has a 99 temperature, it was as high as 101.4; 98 pulse; 97/55 blood pressure; 20 respiratory rate; 97% O2 sat on 2 liters. HEART: Regular rate. LUNGS: Decreased breath sounds, but clear. She is resting in bed, in no acute distress. She is on comfort care measures. We will continue with aggressive treatment and care. She has severe bilateral brain cerebrovascular accident and into the brainstem and she is unresponsive. Anthony Blanca DO
[2017-07-04] MEDS: Vitamins A & D Oint UD Foilpak TOP SCH ×5 (00:52→19:47)
--- NOTE | 2017-07-04 21:48 | PN ---
DATE: SUBJECTIVE: I saw her with her relatives. She is resting in bed. She is not alert, oxygen on nasal cannula. She is having temperatures. PHYSICAL EXAMINATION VITAL SIGNS: She has 98.1 temperature now, was as high as 101.1, 88 pulse, 92/56 blood pressure, 18 respiratory rate, 99% O2 sat on 5 liters nasal cannula. HEENT: Head is atraumatic, normocephalic. HEART: Regular rate. LUNGS: Decreased breath sounds, poor inspiration. ABDOMEN: Soft. EXTREMITIES: Contracted. No edema. ASSESSMENT AND PLAN: She is on hospice, no labs . She is n.p.o. She cannot swallow. She is not awake and alert because of bilateral severe cerebrovascular accident and brainstem involvement. Discussed at length with family. Anthony Blanca DO MTDD
[2017-07-05] MEDS: Vitamins A & D Oint UD Foilpak TOP SCH ×8 (00:45→20:54)
--- NOTE | 2017-07-05 09:40 | PN ---
DATE: SUBJECTIVE: I saw her in the hospital bed at [facility]. She is on hospice care. She is on Ativan, morphine, Tylenol, and vitamin D p.r.n. nasal cannula. She is now alert. She has severe bilateral CVA with brainstem involvement. PHYSICAL EXAMINATION VITAL SIGNS: She has 97.3 temperature - it was as high as 102.8 last night, 93 pulse, 100/63 blood pressure, 20 respiratory rate, and 95% saturation on 2 liters nasal cannula. HEART: Regular rate. LUNGS: Decreased breath sounds. ASSESSMENT AND PLAN: I believe that her body is starting to give away a little bit. She was still more a little dehydrated. She will continue with aggressive treatment and care. Comfort care. Keep as pain free as possible, on hospice. Anthony Blanca DO MTDD
[2017-07-06] MEDS: Vitamins A & D Oint UD Foilpak TOP SCH ×5 (00:34→18:25)
[2017-07-06 08:09] VITALS: RESP 18
--- NOTE | 2017-07-06 09:09 | PN ---
DATE: SUBJECTIVE: Not much changing with her. She is in bed. She has oxygen on with 2 L nasal cannula. PHYSICAL EXAMINATION: VITAL SIGNS: She had a temperature of 101.1, it is down to a 100.8; 109 pulse, it has been 81 pulse; blood pressure is down to 80/50; 18 respiratory rate, it is up to 22 right now; 96% O2 sat on 5 L nasal cannula. HEENT: Head is atraumatic. HEART: Regular rate. LUNGS: Decreased breath sounds. EXTREMITIES: She is contracted a little bit. No edema. ASSESSMENT AND PLAN: She is on morphine, Tylenol and vitamin p.r.n. She is on hospice. We are keeping her as comfortable and as pain free as possible. She had severe bilateral strokes and brainstem involvement. Anthony Blanca DO
[2017-07-06 16:15] VITALS: BP 94/57; PULSE 71; TEMP 98.3; O2SAT 97
--- NOTE | 2017-07-07 00:33 | CP.PCM.PRO ---
Pronouncement of Note - Clinical Findings Physical Exam: No Response Verbal/Painful Stimuli, Absent Peripheral Pulses{ Carotid & Femoral}, Absent Heart & Breath Sounds, No Pupillary Light Reflex, No Corneal Reflex, Pupils Fixed & Dilated, Absence of Vital Signs - Pronouncement Time Time of Pronouncement of : 00:38 - Notifications Pronouncement Notifications: Family Notified, Atending Notified Senior Java Architect Notified: No - Autopsy Autopsy Requested: No - [place] [id number]
== END 2017-07-07 03:04 | DRG 66 ==
LOC: C.6T 11:33
PROVIDERS: ADMIT Family Medicine; ATTEND Family Medicine
DX: I63.9 Cerebral infarction, unspecified (principal); E86.0 Dehydration; Z51.5 Encounter for palliative care